=== PATIENT | male | born 1980 | race Caucasian/White ===

== ENCOUNTER 2019-10-14 10:00 | Observation (INO) ==
[2019-10-14 10:42] LABS: Basophils % 0.3 % (0.1-2.0); Eosinophils # 0.3 K/mm3 (0.0-0.4); Hematocrit 42.2 % (42.0-52.0); Hemoglobin 14.6 g/dL (14.1-18.0); Lymphocytes # 1.4 K/mm3 (0.7-4.5); Lymphocytes % 10.6 % (10-50); Mean Corpuscular HGB Conc 34.6 g/dL (31.8-35.4); Mean Corpuscular Volume 92.2 fl (80-94); Mean Platelet Volume 8.3 fl (7.4-10.4); Monocytes # 0.7 K/mm3 (0.1-1.0); Monocytes % 4.8 % (1.7-9.3); Neutrophils # 11.2 K/mm3 (1.8-7.8); Neutrophils % 82.3 % (37.0-80.0); Platelet Count 239 K/mm3 (142-424); Red Blood Count 4.58 M/mm3 (4.60-6.20); Red Cell Distribution Width 13.1 % (11.5-17.5); White Blood Count 13.6 K/mm3 (4.8-10.8)
[2019-10-14 10:44] LABS: Albumin Level 3.9 g/dl (3.5-5.0); Albumin/Globulin Ratio 1.3 (1.1-1.8); Anion Gap 12.6 mEq/L (5-15); Bilirubin,Total 0.6 mg/dl (0.2-1.3); Total Protein,Serum 6.9 g/dl (6.3-8.2)
[2019-10-14 10:45] LABS: Calcium 9.2 mg/dl (8.4-10.2); INR 1.06 (0.9-1.1)
--- NOTE | 2019-10-14 12:21 | Operative Note ---
Date of procedure: 10/14/19 Pre-op Diagnosis:: Left gluteal abscess Post-op Diagnosis:: Same Procedure performed:: Incision and drainage of left gluteal abscess with debridement of skin and subcutaneous tissues Surgeon:: Rafael Sunshine MD RECRUITMENT CONSULTANT:: Ba Tellez Anesthesia: LMA Estimated blood loss (mL): 15 Clinical Note:: Patient is a 39-year-old male with a history of hepatitis C. He states that several days ago he was working on the roof of an old building. He denies any specific trauma but he began developing a sore tender area in the left gluteal region medially. He tried to squeeze it and perform home drainage without success. He had increasing redness and tenderness in the area and was seen in the urgent treatment center yesterday. He was evaluated and started on oral antibiotics and scheduled for outpatient surgical evaluation. Patient was seen in the office this morning and had evidence of appreciable cellulitis of the left gluteal area measuring approximately 12 to 14 cm with an area 8 cm of appreciable induration with focal central necrosis with some purulent drainage. Plan was made for urgent incision and drainage. Operative findings:: Findings consistent with subcutaneous abscess with focal necrotizing cellulitis. Once necrotic tissue was debrided wound measured approximately 5 cm x 5 cm with 2-1/2 cm in depth. Operative note:: Patient was taken to the operating room. General anesthesia was induced via LMA. He was positioned in right lateral decubitus position. The area was prepped and draped in the standard surgical fashion. The focal area of necrosis was probed with a hemostat. There was thick pus which exuded from the wound. This was sent for aerobic and anaerobic culture. Wound was probed with a hemostat. There was an appreciable abscess cavity. This was opened using electrocautery. Underlying pus was evacuated. There was noted to be some necrosis of the subcutaneous tissues consistent with focal necrotizing cellulitis. Serial limited debridement was carried out circumferentially until nonnecrotic subcutaneous tissues were encountered. This tissue was sent for histopathologic analysis. Once debridement was carried out to relatively noninflamed and nonnecrotic tissues the wound measured 5 cm x 5 cm by approximately 2-1/2 cm in depth. Hemostasis was achieved with electrocautery. Wound was thoroughly irrigated. Local anesthetic was infiltrated. Wound was packed with saline moistened gauze. Dry sterile dressing was applied. Given the appreciable evidence of soft tissue infection with findings consistent with focal necrotizing cellulitis as well as the patient's leukocytosis which would indicate systemic inflammatory response plan will be for inpatient management for intravenous antibiotics, pain control, and wound care at this time. Condition: stable Disposition: PACU Specimens:: Debrided tissue Complications:: None immediately apparent
--- NOTE | 2019-10-14 12:29 | Progress Note ---
[facility] Anesthesia Checklist - Patient Identification Patient Identification: Arm Band - Structural Data Admitted From: Home Planned Operative Procedure/s: I&D left gluteal abscess Consent for Planned Operative Procedure(s) Verified: Yes Verified Documents: Surgical Consent, History and Physical - NPO Status Verified Time NPO: 00:00 - Additional verifications Anesthesia Reactions: No Hx Blood Transfusions: No Blood Transfusion Reaction: No - Airway Assessment C-Spine Mobility Assessed: Yes (mp2) TMJ Mobility Assessed: Yes Dentition: Edentulous - Neurological Assessment Level of Consciousness: Awake, Alert - Anesthesia Plan Anesthesia Risk discussed: Yes Anesthesia Plan: Verified ASA Class: II Anesthesia Type: General [facility] History I have reviewed the patient's past medical history: Yes Medical History: Reports:: Hepatitis (c) Denies:: Cancer, Diabetes Mellitus Type 1, Diabetes Mellitus Type 2, Internal Pacemaker, MRSA, Seizures *Have you ever received a pneumonia vaccine?: No *Have you received a flu vaccine this season?: No Other Medical History: Denies: Blood Transfusion Reaction Anesthesia experience/problems:: nac Other Surgeries: Yes: No Previous Surgery. No: Pacemaker Amputation: No Fractures: Yes (left wrist) - *Social History Educational Level: Completed GED/General Educational Development Smoking Status: Current every day smoker Tobacco Type: cigarettes, smokeless tobacco # Packs/Day (cigarettes): 1 Alcohol Intake: current Alcohol Intake Frequency:: holidays/special occasions only Substance Use Type: former substance user, heroin *Occupational Status:: employed Housing: house Household Members: family *Travel in the last 8 weeks: None Family Hx:: Hyperlipidemia, Hypertension
--- NOTE | 2019-10-14 12:30 | Progress Note ---
[facility] Anesthesia Record Part I Intake, IV Amount: 900 Estimated blood loss (mL): 10 Urine output (mL): 0 Blood Pressure: 130/86 SaO2: 99 Pulse Rate: 79 Respiratory Rate: 16 Temperature: 97 F Patient is:: Drowsy, Stable Stable to PACU at:: 12:20
--- NOTE | 2019-10-14 13:58 | Pharmacy Consult Notes ---
- Pharmacy Consult Date: 10/14/19 Time: 13:57 Referring provider: DR. HARRIS Reason for Consult:: VANCOMYCIN DOSING Allergies and ADEs:: Allergies Allergy/AdvReac Type Severity Reaction Status Date / Time No Known Allergies Allergy Verified 10/14/19 09:33 Home Medications:: Home Medications Medication Instructions Recorded Confirmed Type Mupirocin Calcium [Mupirocin 2% 1 applicatio TP TID 10/14/19 10/14/19 History Cream 15gm] Sulfamethoxazole/Trimethoprim 1 each PO BID 10/14/19 10/14/19 History [Bactrim DS tablet] cephALEXin [Keflex 500mg Cap] 500 mg PO Q6H 10/14/19 10/14/19 History Height: 1.83 m Weight: 71.668 kg Laboratory Results:: Laboratory Results - last 24 hr 10/14/19 10:18: WBC 13.6 H, RBC 4.58 L, Hgb 14.6, Hct 42.2, MCV 92.2, MCH 31.9 H , MCHC 34.6, RDW 13.1, Plt Count 239, MPV 8.3, Neut % (Auto) 82.3 H, Lymph % (Auto) 10.6, [place] % (Auto) 4.8, Eos % (Auto) 2.0, Baso % (Auto) 0.3, Neut # (Auto) 11.2 H, Lymph # (Auto) 1.4, [place] # (Auto) 0.7, Eos # (Auto) 0.3, Baso # (Auto) 0.0 10/14/19 10:18: PT 11.0, INR 1.06 10/14/19 10:18: Sodium 137, Potassium 3.6, Chloride 101, Carbon Dioxide 27, Anion Gap 12.6, BUN 10, Creatinine 1.10, Estimated Creat Clear 90, Estimated GFR 74, Est GFR ( Amer) 89, Glucose 105 H, Calcium 9.2, Total Bilirubin 0.6, AST 22, ALT 15, Alkaline Phosphatase 51, Total Protein 6.9, Albumin 3.9, Globulin 3.0, Albumin/Globulin Ratio 1.3 Medical History: Reports:: Hepatitis (c) Denies:: Cancer, Diabetes Mellitus Type 1, Diabetes Mellitus Type 2, Internal Pacemaker, MRSA, Seizures Assessment and Plan - Assessment and plan all Dx Assessment and Plan for all problems:: BASED ON PATIENT FACTORS, RECOMMEND VANCOMYCIN 1250 MG IV Q12H. PHARMACY WILL FOLLOW DAILY AND ADJUST APPROPRIATE.
--- NOTE | 2019-10-14 14:13 | Progress Note ---
[facility] Anesthesia Record Part II Discharge Time: 12:50 Destination: Medical Surgical Department PACU nurse assessment reviewed?: Yes Patient Condition:: Good Anesthesia Complications:: None Swallowing reflex intact?: Yes Cyanosis?: No Blood Pressure: 133/92 Pulse Rate: 93 Temperature: 98 F Mental Status: Alert & Oriented Pain level:: 0 Nausea and/or vomitting:: None Intake, IV Amount: 0
--- NOTE | 2019-10-14 14:50 | Pharmacy Consult Notes ---
[facility] Pharmacy VTE Monitoring - Patient Demographics Admission date: 10/14/19 Report Date: 10/14/19 Time: 14:50 Allergies/Adverse Reactions: Patient Allergies No Known Allergies Allergy (Verified 10/14/19 09:33) Height: 1.83 m Weight: 71.668 kg - VTE Risk Labs: VTE Related Lab Results Hgb 14.6 g/dL (14.1-18.0) 10/14/19 10:18 Hct 42.2 % (42.0-52.0) 10/14/19 10:18 Plt Count 239 K/mm3 (142-424) 10/14/19 10:18 PT 11.0 seconds (9.4-11.8) 10/14/19 10:18 INR 1.06 (0.9-1.1) 10/14/19 10:18 BUN 10 mg/dl (9-20) 10/14/19 10:18 Creatinine 1.10 mg/dl (0.66-1.25) 10/14/19 10:18 Estimated Creat Clear 90 mL/min (50-200) 10/14/19 10:18 VTE Score: 1 VTE Risk Level: Very Low Risk - Prophylaxis VTE Prophylaxis Ordered?: Yes Types of VTE Prophylaxis: TEDS Knee High Location of Applied Device: Bilateral Lower Extremeties
[2019-10-15 05:59] LABS: Basophils % 0.4 % (0.1-2.0); Eosinophils # 0.3 K/mm3 (0.0-0.4); Eosinophils % 3.1 % (0.1-12.0); Hematocrit 36.2 % (42.0-52.0); Lymphocytes # 1.7 K/mm3 (0.7-4.5); Lymphocytes % 20.5 % (10-50); Mean Corpuscular HGB Conc 32.5 g/dL (31.8-35.4); Mean Corpuscular Volume 96.3 fl (80-94); Mean Platelet Volume 8.2 fl (7.4-10.4); Monocytes # 0.4 K/mm3 (0.1-1.0); Monocytes % 5.2 % (1.7-9.3); Neutrophils # 5.7 K/mm3 (1.8-7.8); Neutrophils % 70.8 % (37.0-80.0); Platelet Count 219 K/mm3 (142-424); Red Blood Count 3.76 M/mm3 (4.60-6.20); Red Cell Distribution Width 13.2 % (11.5-17.5); White Blood Count 8.1 K/mm3 (4.8-10.8)
[2019-10-15 06:00] LABS: Hemoglobin 11.8 g/dL (14.1-18.0)
--- NOTE | 2019-10-15 06:34 | Progress Note ---
Subjective Patient reports: feels better Narrative: Patient states that he feels much better. Not had dressing change as of yet. Gram stain shows gram-positive cocci. Exam Vital signs and Labs for Last 24 Hours: Temp Pulse Resp BP Pulse Ox 98.3 F 72 18 110/73 98 10/15/19 04:00 10/15/19 04:00 10/15/19 04:00 10/15/19 04:00 10/15/19 04:00 Laboratory Results - last 24 hr 10/14/19 10:18: WBC 13.6 H, RBC 4.58 L, Hgb 14.6, Hct 42.2, MCV 92.2, MCH 31.9 H , MCHC 34.6, RDW 13.1, Plt Count 239, MPV 8.3, Neut % (Auto) 82.3 H, Lymph % (Auto) 10.6, [place] % (Auto) 4.8, Eos % (Auto) 2.0, Baso % (Auto) 0.3, Neut # (Auto) 11.2 H, Lymph # (Auto) 1.4, [place] # (Auto) 0.7, Eos # (Auto) 0.3, Baso # (Auto) 0.0 10/14/19 10:18: PT 11.0, INR 1.06 10/14/19 10:18: Sodium 137, Potassium 3.6, Chloride 101, Carbon Dioxide 27, Anion Gap 12.6, BUN 10, Creatinine 1.10, Estimated Creat Clear 90, Estimated GFR 74, Est GFR ( Amer) 89, Glucose 105 H, Calcium 9.2, Total Bilirubin 0.6, AST 22, ALT 15, Alkaline Phosphatase 51, Total Protein 6.9, Albumin 3.9, Globulin 3.0, Albumin/Globulin Ratio 1.3 10/15/19 05:35: WBC 8.1 D, RBC 3.76 L, Hgb 11.8 L D, Hct 36.2 L, MCV 96.3 H, MCH 31.3 H, MCHC 32.5, RDW 13.2, Plt Count 219, MPV 8.2, Neut % (Auto) 70.8, Lymph % (Auto) 20.5, [place] % (Auto) 5.2, Eos % (Auto) 3.1, Baso % (Auto) 0.4, Neut # (Auto) 5.7, Lymph # (Auto) 1.7, [place] # (Auto) 0.4, Eos # (Auto) 0.3, Baso # (Auto) 0.0 I & O for Last 24 hours: Intake & Output 10/12/19 10/13/19 10/14/19 10/15/19 11:59 11:59 11:59 11:59 Intake Total 2541 / 2541 Balance 2541 / 2541 Weight 158 lb 153 lb Microbiology Reports for the Last 24 Hours: Microbiology 10/14/19 11:49 Leg,Left - Abscess Gram Stain - Final 10/14/19 11:49 Leg,Left - Abscess Abscess Culture - Preliminary Gram Positive Cocci Narrative: Exam of wound deferred at this time. Progress Note: A&P Assessment and Plan for All Diagnoses:: Patient currently on vancomycin and Zosyn. Will reassess wound shortly. Anticipate ultimate outpatient management with oral antibiotics and dressing changes.
--- NOTE | 2019-10-15 09:00 | Discharge Summary ---
General - General Admission date:: 10/14/19 Discharge date: 10/15/19 HPI HPI: Patient is a 39-year-old male with a history of hepatitis C. He states that several days ago he was working on the roof of an old building. He denies any specific trauma but he began developing a sore tender area in the left gluteal region medially. He tried to squeeze it and perform home drainage without success. He had increasing redness and tenderness in the area and was seen in the urgent treatment center yesterday. He was evaluated and started on oral antibiotics and scheduled for outpatient surgical evaluation. Patient was seen in the office this morning and had evidence of appreciable cellulitis of the left gluteal area measuring approximately 12 to 14 cm with an area 8 cm of appreciable induration with focal central necrosis with some purulent drainage. Plan was made for urgent incision and drainage. Hospital Course Hospital Course: Patient was taken to the operating room at which time he underwent incision and drainage of complex left gluteal abscess. He was found to have some underlying focal necrotizing cellulitis which was debrided. He had debridement of skin and subcutaneous tissue. The overall size of the wound measured approximately 5 x 5 cm and 2-1/2 cm in depth. Given the degree of the wound and cellulitis as well as findings of systemic inflammation with leukocytosis plan was made for inpatient admission. Patient was admitted for inpatient care. He felt much better once the abscess and necrotic tissue was debrided. He was given intravenous vancomycin and Zosyn. Cultures returned preliminarily with gram- positive cocci. The following morning he had market diminished cellulitis. Dressing change was performed which revealed a clean wound. Plan was made for discharge home with oral antibiotics as previously prescribed consisting of Bactrim and cephalexin with once daily outpatient wet-to-dry dressing changes. Objective Vital signs: Temp Pulse Resp BP Pulse Ox 98.3 F 72 18 110/73 98 10/15/19 04:00 10/15/19 04:00 10/15/19 04:00 10/15/19 04:00 10/15/19 04:00 Results Labs on day of discharge: Labs from last 24 hours 10/15/19 10/14/19 10/14/19 05:35 10:18 10:18 WBC 8.1 D RBC 3.76 L Hgb 11.8 L D Hct 36.2 L MCV 96.3 H MCH 31.3 H MCHC 32.5 RDW 13.2 Plt Count 219 MPV 8.2 Neut % (Auto) 70.8 Lymph % (Auto) 20.5 [place] % (Auto) 5.2 Eos % (Auto) 3.1 Baso % (Auto) 0.4 Neut # (Auto) 5.7 Lymph # (Auto) 1.7 [place] # (Auto) 0.4 Eos # (Auto) 0.3 Baso # (Auto) 0.0 PT 11.0 INR 1.06 Sodium 137 Potassium 3.6 Chloride 101 Carbon Dioxide 27 Anion Gap 12.6 BUN 10 Creatinine 1.10 Estimated Creat Clear 90 Estimated GFR 74 Est GFR ( Amer) 89 Glucose 105 H Calcium 9.2 Total Bilirubin 0.6 AST 22 ALT 15 Alkaline Phosphatase 51 Total Protein 6.9 Albumin 3.9 Globulin 3.0 Albumin/Globulin Ratio 1.3 10/14/19 10:18 WBC 13.6 H RBC 4.58 L Hgb 14.6 Hct 42.2 MCV 92.2 MCH 31.9 H MCHC 34.6 RDW 13.1 Plt Count 239 MPV 8.3 Neut % (Auto) 82.3 H Lymph % (Auto) 10.6 [place] % (Auto) 4.8 Eos % (Auto) 2.0 Baso % (Auto) 0.3 Neut # (Auto) 11.2 H Lymph # (Auto) 1.4 [place] # (Auto) 0.7 Eos # (Auto) 0.3 Baso # (Auto) 0.0 PT INR Sodium Potassium Chloride Carbon Dioxide Anion Gap BUN Creatinine Estimated Creat Clear Estimated GFR Est GFR ( Amer) Glucose Calcium Total Bilirubin AST ALT Alkaline Phosphatase Total Protein Albumin Globulin Albumin/Globulin Ratio Preliminary micro results at discharge 10/14/19 11:49 Abscess Culture - Preliminary Leg,Left - Abscess Gram Positive Cocci Discharge Plan - Patient Discharge Instructions ACTIVITY: Continue current activity DIET: continue same diet Additional Instructions: Patient to undergo wet-to-dry saline dressings once daily through outpatient/infusion. - Follow up Plan Follow up with: Rafael Sunshine MD [Staff Physician] - 1 week Disposition: Home, Self-Prison Medications: Home Medications Medication Instructions Recorded Confirmed Type Mupirocin Calcium [Mupirocin 2% 1 applicatio TP TID 10/14/19 10/14/19 History Cream 15gm] Sulfamethoxazole/Trimethoprim 1 each PO BID 10/14/19 10/14/19 History [Bactrim DS tablet] cephALEXin [Keflex 500mg Cap] 500 mg PO Q6H 10/14/19 10/14/19 History Prescriptions/Medication Reconciliation: Continued cephALEXin [Keflex 500mg Cap] 500 mg PO Q6H Sulfamethoxazole/Trimethoprim [Bactrim DS tablet] 1 each PO BID Discontinued Mupirocin Calcium [Mupirocin 2% Cream 15gm] 1 applicatio TP TID - Problem Reconciliation Problems Reviewed?: Yes
== END 2019-10-15 10:30 | disposition home or self-care (01) ==
LOC: 2ND 10:00 → OR 10:00
PROVIDERS: ADMIT Surgery; ATTEND Surgery
CPT/HCPCS: 36415; 80053; 85025; 85610; 87070; 87075; 87077; 87186; 87205; 96372; 96374; G0378; J0330; J2405; J2543; J3370; S0077

== ENCOUNTER 2019-10-16 09:47 | Outpatient (CLI) | payer OTHER, SELFPAY ==
[2019-10-16 10:00] VITALS: RESP 20; O2SAT 96
== END 2019-10-16 10:02 | disposition home or self-care (01) ==
LOC: INF 09:49
PROVIDERS: Visit Provider Surgery
DX: L03.317 Cellulitis of buttock (principal); Z48.01 Encounter for change or removal of surgical wound dressing
CPT/HCPCS: G0463

== ENCOUNTER 2019-10-17 12:15 | Outpatient (CLI) | payer OTHER, SELFPAY | END 2019-10-17 12:40 | disposition home or self-care (01) | LOC: INF 12:15 | PROVIDERS: Visit Provider Surgery | DX: L03.317 Cellulitis of buttock (principal); Z48.01 Encounter for change or removal of surgical wound dressing | CPT/HCPCS: G0463 ==

== ENCOUNTER 2019-10-18 11:03 | Outpatient (CLI) | payer OTHER, SELFPAY | END 2019-10-18 11:20 | disposition home or self-care (01) | LOC: INF 11:03 | PROVIDERS: Visit Provider Surgery | DX: L02.31 Cutaneous abscess of buttock (principal); Z48.00 Encounter for change or removal of nonsurgical wound dressing | CPT/HCPCS: G0463 ==

== ENCOUNTER 2019-10-19 15:18 | Outpatient (CLI) | payer OTHER, SELFPAY | END 2019-10-19 15:45 | disposition home or self-care (01) | LOC: INF 15:18 | PROVIDERS: Visit Provider Surgery | DX: L02.31 Cutaneous abscess of buttock (principal); Z48.01 Encounter for change or removal of surgical wound dressing | CPT/HCPCS: G0463 ==

== ENCOUNTER 2019-10-20 13:58 | Outpatient (CLI) | payer OTHER, SELFPAY | END 2019-10-20 14:05 | disposition home or self-care (01) | LOC: INF 13:58 | PROVIDERS: Visit Provider Surgery | DX: L02.31 Cutaneous abscess of buttock (principal); Z48.01 Encounter for change or removal of surgical wound dressing | CPT/HCPCS: G0463 ==

== ENCOUNTER 2019-10-21 14:53 | Outpatient (CLI) | payer OTHER, SELFPAY | END 2019-10-21 15:00 | disposition home or self-care (01) | LOC: INF 14:54 | PROVIDERS: Visit Provider Surgery | DX: L02.31 Cutaneous abscess of buttock (principal); Z48.01 Encounter for change or removal of surgical wound dressing | CPT/HCPCS: G0463 ==

== ENCOUNTER → 2019-10-22 14:35 | Outpatient (CLI) | payer OTHER, SELFPAY | PROVIDERS: Visit Provider Surgery | DX: L02.31 Cutaneous abscess of buttock (principal); Z48.01 Encounter for change or removal of surgical wound dressing | CPT/HCPCS: G0463 ==

== ENCOUNTER 2019-10-25 14:42 | Outpatient (CLI) | payer OTHER, SELFPAY | END 2019-10-25 14:50 | disposition home or self-care (01) | LOC: INF 14:42 | PROVIDERS: Visit Provider Surgery | DX: L02.31 Cutaneous abscess of buttock (principal); Z48.01 Encounter for change or removal of surgical wound dressing | CPT/HCPCS: G0463 ==

== ENCOUNTER 2019-10-26 16:19 | Outpatient (CLI) | payer OTHER, SELFPAY | END 2019-10-26 16:25 | disposition home or self-care (01) | LOC: INF 16:19 | PROVIDERS: Visit Provider Surgery | DX: L02.31 Cutaneous abscess of buttock (principal); Z48.01 Encounter for change or removal of surgical wound dressing | CPT/HCPCS: G0463 ==

== ENCOUNTER 2019-10-27 16:30 | Outpatient (CLI) | payer OTHER, SELFPAY | END 2019-10-27 16:44 | disposition home or self-care (01) | LOC: INF 16:34 | PROVIDERS: Visit Provider Surgery | DX: L02.31 Cutaneous abscess of buttock (principal); Z48.01 Encounter for change or removal of surgical wound dressing | CPT/HCPCS: G0463 ==

== ENCOUNTER 2019-10-28 16:12 | Outpatient (CLI) | payer OTHER, SELFPAY ==
[2019-10-28 16:23] VITALS: BP 122/74; PULSE 68; RESP 20
== END 2019-10-28 16:26 | disposition home or self-care (01) ==
LOC: INF 16:12
PROVIDERS: Visit Provider Surgery
DX: L02.31 Cutaneous abscess of buttock (principal); Z48.01 Encounter for change or removal of surgical wound dressing
CPT/HCPCS: G0463

== ENCOUNTER 2019-10-29 16:57 | Outpatient (CLI) | payer OTHER, SELFPAY ==
[2019-10-29 17:15] VITALS: BP 141/94; PULSE 113; RESP 17; TEMP 36.6; O2SAT 98
[2019-10-29 17:18] VITALS: BP 141/94; PULSE 113; RESP 18; TEMP 36.6; O2SAT 98
== END 2019-10-29 17:19 | disposition home or self-care (01) ==
LOC: INF 16:57
PROVIDERS: Visit Provider Surgery
DX: L02.31 Cutaneous abscess of buttock (principal); Z48.01 Encounter for change or removal of surgical wound dressing
CPT/HCPCS: G0463

== ENCOUNTER 2019-10-31 16:18 | Outpatient (CLI) | payer OTHER, SELFPAY | END 2019-10-31 16:31 | disposition home or self-care (01) | LOC: INF 16:18 | PROVIDERS: Visit Provider Surgery | DX: L02.31 Cutaneous abscess of buttock (principal); Z48.01 Encounter for change or removal of surgical wound dressing | CPT/HCPCS: G0463 ==

== ENCOUNTER 2019-11-01 16:13 | Outpatient (CLI) | payer OTHER, SELFPAY | END 2019-11-01 16:24 | disposition home or self-care (01) | LOC: INF 16:13 | PROVIDERS: Visit Provider Surgery | DX: L02.31 Cutaneous abscess of buttock (principal); Z48.01 Encounter for change or removal of surgical wound dressing | CPT/HCPCS: G0463 ==

== ENCOUNTER 2019-11-02 16:20 | Outpatient (CLI) | payer OTHER, SELFPAY | END 2019-11-02 16:35 | disposition home or self-care (01) | LOC: INF 16:28 | PROVIDERS: Visit Provider Surgery | DX: L02.31 Cutaneous abscess of buttock (principal); Z48.01 Encounter for change or removal of surgical wound dressing | CPT/HCPCS: G0463 ==

== ENCOUNTER 2019-11-03 16:10 | Outpatient (CLI) | payer OTHER, SELFPAY | END 2019-11-03 16:26 | disposition home or self-care (01) | LOC: INF 16:19 | PROVIDERS: Visit Provider Surgery | DX: L02.31 Cutaneous abscess of buttock (principal); Z48.01 Encounter for change or removal of surgical wound dressing | CPT/HCPCS: G0463 ==

== ENCOUNTER 2019-11-07 16:25 | Outpatient (CLI) | payer OTHER, SELFPAY | END 2019-11-07 16:37 | disposition home or self-care (01) | LOC: INF 16:26 | PROVIDERS: Visit Provider Surgery | DX: L02.31 Cutaneous abscess of buttock (principal); Z48.01 Encounter for change or removal of surgical wound dressing | CPT/HCPCS: G0463 ==

== ENCOUNTER 2019-11-08 16:20 | Outpatient (CLI) | payer OTHER, SELFPAY ==
--- NOTE | 2019-11-08 16:25 | PC.NURSE ---
1625-discussed with patient that wound is now flushed and skin and can be covered with bandaid for further healing, keep follow up with , and if pt has any problems to call and come back to infusion department. cleansed wound and covered with large bandaid.
== END 2019-11-08 16:26 | disposition home or self-care (01) ==
LOC: INF 16:20
PROVIDERS: Visit Provider Surgery
DX: L02.31 Cutaneous abscess of buttock (principal); Z48.01 Encounter for change or removal of surgical wound dressing
CPT/HCPCS: G0463

== ENCOUNTER 2020-10-04 16:46 | Emergency (ER) | payer OTHER, SELFPAY ==
--- NOTE | 2020-10-04 16:54 | XR_ITS ---
PROCEDURE: XR RIBS BI MIN 4V W CXR1V CLINICAL INDICATION: FALL Left anterior rib pain following injury COMPARISON: No exams were available for comparison FINDINGS: Multiple views of the left ribs show no obvious fracture. No lytic or blastic change. Consider follow-up in 7-[address] with 3D reformats if pain persists Frontal view of the chest shows no acute finding IMPRESSION: No acute findings. Dictated by: Osbaldo Murdock MD 10/04/2020 17:22 Osbaldo Murdock MD in [place] 10/04/2020 17:22
[2020-10-04 16:57] VITALS: BP 130/104; PULSE 93; RESP 23; TEMP 36.6; O2SAT 98; BMI 20.9
--- NOTE | 2020-10-04 17:24 | HMH.EDUTC ---
[facility] Disposition Clinical Impression: Rib pain Contusion of ribs Qualifiers: Encounter type: initial encounter Laterality: unspecified laterality Qualified Code(s): S20.219A - Contusion of unspecified front wall of thorax, initial encounter Disposition: Home, Self-Care Condition on Discharge: Good Instructions: DI for Rib Contusion Additional Instructions: Take the medication as directed. Use the incentive spirometer as directed. (10 times every hour while awake) for the next 1 week. Follow up with your primary care doctor. GO TO THE ER FOR ANY WORSENING SYMPTOMS OR CONCERNS, ESPECIALLY ANY SHORTNESS OF BREATH OR WORSENING CHEST PAIN. Prescriptions: Ibuprofen [Ibuprofen 800mg Tablet] 800 mg PO Q8HP PRN #30 tab PRN Reason: Moderate Pain Transmission Status: Received by [facility] Referrals: PCP,No [Primary Care Provider] - Forms: Work/School Release Time of Disposition: 17:40 Medical Decision Making - Medical Records Medical records reviewed: No: I reviewed the patient's medical records. - Andrew Inquiry Pt receiving controlled substance: No Vital Signs: 10/04/20 16:57 10/04/20 17:45 Temperature 97.9 F 97 F L Temperature Source Tympanic Tympanic Pulse Rate 89 Pulse Rate [Right] 93 H Respiratory Rate 23 22 Blood Pressure 136/109 H Blood Pressure [Right Arm] 130/104 H Blood Pressure Mean [Right Arm] 112 Blood Pressure Source [Right Arm] Automatic Cuff Blood Pressure Position [Right Arm] Sitting 02 Sat by Pulse Oximetry 98 Orders (Tests/Meds): ED MEDICATIONS Discontinued Medications Generic Name Dose Route Start Last Admin Trade Name Freq PRN Reason Stop Dose Admin Ketorolac Tromethamine 60 mg 10/04/20 17:11 10/04/20 17:12 Ketorolac 60mg/2ml Vial IM 10/04/20 17:12 60 mg ONCE ONE Administration - Radiology Data #1 Image(s): Chest, Other (ribs) Image Reviewed: Yes I reviewed the patient's radiology image, Yes I have reviewed radiologist's interpretation Preliminary Findings: Normal/NAD PROCEDURE: XR RIBS BI MIN 4V W CXR1V CLINICAL INDICATION: FALL Left anterior rib pain following injury COMPARISON: No exams were available for comparison FINDINGS: Multiple views of the left ribs show no obvious fracture. No lytic or blastic change. Consider follow-up in 7-[address] with 3D reformats if pain persists Frontal view of the chest shows no acute finding IMPRESSION: No acute findings. Dictated by: Osbaldo Murdock MD 10/04/2020 17:22 Osbaldo Murdock MD in [place] 10/04/2020 17:22 Medical Decision Narrative: He was given an incentive spirometer and instructed on how to use it. [facility] HPI - General Stated complaint: AO 0316 fell injured l side Time Seen by Provider: 10/04/20 17:00 Mode of Arrival: Wheelchair Source of Information: Patient Limitations: No Limitations Description of Symptoms (Recalled from Triage Doc. by RN): pt fell two days ago off of a ladder about a five ft fall. says he landed on railroad ties. pt is moaning out in pain, pain 10/10, sharp shooting bilateral rib pain but worse in the left. HEENT Symptoms (Recalled from RN notes): No Resp Symptoms (Recalled from RN notes): No Skin Symptoms (Recalled from RN notes): No MS Symptoms (Recalled from RN notes): Yes (bilateral rib pain. worse on L side) Functional Status (Recalled from RN notes): na - History of Present Illness Provider Complaint: He states that he fell off of a ladder 2 days ago and fell approx 4 feet. He came down on his left side onto some wood. He has had bilateral rib pain since then. He states that he hurts worse on his left side than his right. He currently rates his pain as an 8/10. He denies any shortness of breath. He does say that breathing deep makes his pain worse. - Related Data Previous Rx's Medication Instructions Recorded Ibuprofen [Ibuprofen 800mg 800 mg PO Q8HP PRN #30 tab 10/04/20 Tablet]
[2020-10-04 17:45] VITALS: BP 136/109; PULSE 89; RESP 22; TEMP 36.1
== END 2020-10-04 17:45 | disposition home or self-care (01) ==
PROVIDERS: Emergency Provider Nurse Practitioner Family
DX: S20.219A Contusion of unspecified front wall of thorax, initial encounter (principal); W11.XXXA Fall on and from ladder, initial encounter; Y92.9 Unspecified place or not applicable
CPT/HCPCS: 71111; 96372; 99202; G0463

== ENCOUNTER → 2020-10-18 17:37 | Outpatient (CLI) | payer OTHER, SELFPAY ==
[2020-10-18 17:55] LABS: Basophils % 0.4 % (0.1-2.0); Eosinophils % 0.5 % (0.1-12.0); Hematocrit 43.8 % (42.0-52.0); Hemoglobin 14.4 g/dL (14.1-18.0); Lymphocytes # 2.3 K/mm3 (0.7-4.5); Lymphocytes % 30.1 % (10-50); Mean Corpuscular HGB Conc 32.9 g/dL (31.8-35.4); Mean Corpuscular Volume 91.3 fl (80-94); Mean Platelet Volume 8.9 fl (7.4-10.4); Monocytes # 0.4 K/mm3 (0.1-1.0); Monocytes % 5.1 % (1.7-9.3); Neutrophils # 4.9 K/mm3 (1.8-7.8); Neutrophils % 63.9 % (37.0-80.0); Platelet Count 224 K/mm3 (142-424); Red Blood Count 4.79 M/mm3 (4.60-6.20); Red Cell Distribution Width 13.8 % (11.5-17.5); White Blood Count 7.6 K/mm3 (4.8-10.8)
[2020-10-18 19:22] LABS: Chloride 105 mmol/L (98-107); Potassium 4.5 mmoL/L (3.5-5.1); Sodium 137 mmol/L (136-145)
[2020-10-18 19:25] LABS: Alanine Aminotransferase 27 U/L (12-78); Albumin Level 4.9 g/dl (3.5-5.0); Alkaline Phosphatase 53 U/L (38-126); Anion Gap 10.5 mEq/L (5-15); Aspartate Amino Transferase 36 U/L (17-59); Bilirubin,Total 0.5 mg/dl (0.2-1.3); Blood Urea Nitrogen 12 mg/dl (9-20); Carbon Dioxide 26 mmol/L (22.0-30.0); Estimated Glomerular Filt Rate 124 ml/min (>60); GFR (African American) 150 ML/MIN (>60); Globulin 2.5 g/dL (1.3-3.2); Total Protein,Serum 7.4 g/dl (6.3-8.2)
[2020-10-18 19:26] LABS: Calcium 9.7 mg/dl (8.4-10.2); Glucose 85 mg/dl (74-100)
[2020-10-20 11:20] LABS: Hep A Ab, IgM Negative (Negative); Hep A Ab, Total Positive (Negative); Hep B Core Ab, Total Negative (Negative)
[2020-10-20 19:12] LABS: HIV Screen 4th Generation wRfx Non Reactive (Non Reactive); Hep B Surface Ab, Qual Non Reactive (.)
[2020-10-24 13:53] LABS: Hepatitis C Genotype 1a (.)
== END ==
PROVIDERS: Visit Provider Nurse Practitioner Family
DX: Z86.19 Personal history of other infectious and parasitic diseases (principal); R30.0 Dysuria; Z11.4 Encounter for screening for human immunodeficiency virus [HIV]
CPT/HCPCS: 80053; 85025; 86703; 86704; 86706; 86708; 87522; G0432

== ENCOUNTER 2020-11-20 19:12 | Emergency (ER) | payer OTHER, SELFPAY ==
[2020-11-20 19:15] VITALS: BP 123/87; PULSE 76; RESP 19; TEMP 36.7; O2SAT 98; BMI 18.3
--- NOTE | 2020-11-20 19:37 | HMH.EDUTC ---
[facility] Disposition Clinical Impression: Strep throat, Exposure to COVID-19 virus Disposition: Home, Self-Care Condition on Discharge: Good Instructions: Strep Throat, DI for Strep Throat, Preventing the Spread of Coronavirus Discharge Instructions Additional Instructions: Drink plenty of fluids. Take tylenol or ibuprofen for pain or fever. Take the medications as directed. Follow up with your regular doctor. GO TO THE ER FOR ANY WORSENING SYMPTOMS Throw your tooth brush away and get a new one. Prescriptions: Ondansetron [Zofran 4mg ODT] 4 mg PO Q8HP PRN #12 tab.rapdis PRN Reason: Nausea Transmission Status: Received by [id number] Amoxicillin/Potassium Clav [Augmentin 875-125 Tablet] 1 tab PO Q12H 10 Days #20 tab Transmission Status: Received by [id number] Referrals: Willem Ghotra MD [Primary Care Provider] - Forms: Work/School Release Time of Disposition: 19:58 Medical Decision Making - Medical Records Medical records reviewed: No: I reviewed the patient's medical records. - Andrew Inquiry Pt receiving controlled substance: No Vital Signs: 11/20/20 19:15 11/20/20 19:55 Temperature 98.1 F 98.1 F Temperature Source Oral Pulse Rate 76 Pulse Rate [Right Brachial] 76 Respiratory Rate 19 19 Blood Pressure 123/87 Blood Pressure [Right Arm] 123/87 Blood Pressure Mean [Right Arm] 99 Blood Pressure Source [Right Arm] Automatic Cuff Blood Pressure Position [Right Arm] Sitting 02 Sat by Pulse Oximetry 98 Oxygen Delivery Method Room Air - Lab Data Lab results reviewed: Yes: I reviewed the patient's lab results. Lab Results 11/20/20 19:39: Strep Scn Rapid Clinic Positive A Orders (Tests/Meds): ORDERS Category Date Time Status Covid-19 Nasal PCR ([facility]) Routine Lab 11/20/20 19:22 Received [facility] HPI - General Stated complaint: covid test,cough,KUO,Vomiting Time Seen by Provider: 11/20/20 19:37 - History of Present Illness Provider Complaint: He c/o sore throat, fever, and feeling bad for the past 2 days. He was exposed to covid-19 last week. - Related Data Previous Rx's Medication Instructions Recorded Amoxicillin/Potassium Clav 1 tab PO Q12H 10 Days #20 tab 11/20/20 [Augmentin 875-125 Tablet] Ondansetron [Zofran 4mg ODT] 4 mg PO Q8HP PRN #12 tab.rapdis 11/20/20 Allergies Allergy/AdvReac Type Severity Reaction Status Date / Time No Known Allergies Allergy Verified 10/18/20 15:31 [facility] History - Hepatitis A Screen Attestation statement:: This patient has been screened for Hepatitis A risk factors. I have reviewed the patient's past medical history: Yes Medical History: Reports:: Hepatitis Denies:: Cancer, Diabetes Mellitus Type 1, Diabetes Mellitus Type 2, Internal Pacemaker, MRSA, Seizures Other Medical History: Denies: Blood Transfusion Reaction Other Surgeries: Yes: No Previous Surgery, Other. No: Pacemaker Amputation: No Fractures: Yes (left wrist) - Social History Smoking Status: Current every day smoker Tobacco Type: cigarettes # Packs/Day (cigarettes): 1 Alcohol Intake: never Alcohol Intake Frequency:: holidays/special occasions only Substance Use Type: former substance user, heroin Occupational Status: employed Housing: house Household Members: family Family Hx:: Diabetes, Heart Attack, Hyperlipidemia, Hypertension ROS Obtained: Yes All systems reviewed & no additional complaints - Constitutional Constitutional: Reports chills, Reports fever(s), Reports poor appetite, Reports malaise - Eyes Eyes: Denies eye discharge - ENT Ears, Nose, Mouth, and Throat: Reports as per HPI - Cardiovascular Cardiovascular: Denies chest pain - Respiratory Respiratory: Denies chest congestion, Reports cough, Denies dyspnea, Denies stridor, Denies wheezing - Gastrointestinal Gastrointestingal: Reports: nausea, vomiting. Denies: abdominal pain, diarrhea Physical Exam - General General patrick
[2020-11-20 19:51] LABS: UTC Strep Screen (Rapid) Positive (Negative)
[2020-11-20 19:55] VITALS: BP 123/87; PULSE 76; RESP 19; TEMP 36.7; O2SAT 98
== END 2020-11-20 20:03 | disposition home or self-care (01) ==
PROVIDERS: Emergency Provider Nurse Practitioner Family; PCP Emergency Medicine
DX: Z20.822 Contact with and (suspected) exposure to COVID-19 (principal); J02.0 Streptococcal pharyngitis; F17.210 Nicotine dependence, cigarettes, uncomplicated
CPT/HCPCS: 87880; 99202; G0463; U0003

== ENCOUNTER 2023-03-27 22:43 | Emergency (ER) | payer OTHER, SELFPAY ==
[2023-03-27 22:43] VITALS: BP 153/96; PULSE 113; RESP 20; TEMP 36.8; O2SAT 97; BMI 20.2
[2023-03-27 23:00] VITALS: BP 137/91; PULSE 109; O2SAT 96
--- NOTE | 2023-03-27 23:40 | XR_ITS ---
PROCEDURE INFORMATION: Exam: XR Right Ankle Exam date and time: 03/27/2023 11:40 PM Age: 42 years old Clinical indication: Pain; Ankle; Right; Additional info: Swelling, erythema, cellulitis vs. Septic joint TECHNIQUE: Imaging protocol: Radiologic exam of the right ankle. Views: 3 or more views. COMPARISON: No relevant prior studies available. FINDINGS: Bones/joints: No acute fracture or dislocation. Soft tissues: There is significant soft tissue swelling about the ankle. IMPRESSION: Soft tissue swelling without acute injury identified.
[2023-03-27 23:48] LABS: Basophils % 0.3 % (0.1-2.0); Eosinophils # 0.2 K/mm3 (0.0-0.4); Eosinophils % 1.8 % (0.1-12.0); Hematocrit 38.1 % (42.0-52.0); Hemoglobin 12.8 g/dL (14.1-18.0); Lymphocytes # 2.2 K/mm3 (0.7-4.5); Lymphocytes % 22.6 % (10-50); Mean Corpuscular HGB Conc 33.7 g/dL (31.8-35.4); Mean Corpuscular Hemoglobin 31.2 pg (27.0-31.2); Mean Corpuscular Volume 92.7 fl (80-94); Mean Platelet Volume 8.2 fl (7.4-10.4); Monocytes # 0.7 K/mm3 (0.1-1.0); Neutrophils # 6.6 K/mm3 (1.8-7.8); Neutrophils % 68.3 % (37.0-80.0); Platelet Count 152 K/mm3 (142-424); Red Blood Count 4.11 M/mm3 (4.60-6.20); Red Cell Distribution Width 14.6 % (11.5-17.5); White Blood Count 9.7 K/mm3 (4.8-10.8)
[2023-03-27 23:50] LABS: Chloride 108 mmol/L (98-107); Potassium 3.2 mmoL/L (3.5-5.1); Sodium 139 mmol/L (136-145)
[2023-03-27 23:53] LABS: Alanine Aminotransferase 111 U/L (12-78); Albumin Level 3.3 g/dl (3.5-5.0); Albumin/Globulin Ratio 1.1 (1.1-1.8); Alkaline Phosphatase 102 U/L (38-126); Anion Gap 10.2 mEq/L (5-15); Aspartate Amino Transferase 87 U/L (17-59); Bilirubin,Total 0.6 mg/dl (0.2-1.3); Blood Urea Nitrogen 9 mg/dl (9-20); Calcium 8.9 mg/dl (8.4-10.2); Carbon Dioxide 24 mmol/L (22.0-30.0); Creatinine Clearance Estimated 125 mL/min (50-200); Estimated Glomerular Filt Rate 123 ml/min (>60); GFR (African American) 148 ML/MIN (>60); Glucose 119 mg/dl (74-100); Total Protein,Serum 6.3 g/dl (6.3-8.2)
[2023-03-28 00:19] LABS: Erythrocyte Sedimentation Rate 17 mm/hr (0-15)
[2023-03-28 02:12] LABS: C-Reactive Protein 13.2 mg/L (0-4)
--- NOTE | 2023-03-28 02:17 | PC.NURSE ---
On phone with [facility]'s re: transfer to their facility, Dr. Benavides on phone
--- NOTE | 2023-03-28 02:23 | PC.NURSE ---
No room available at
--- NOTE | 2023-03-28 02:24 | HMH.EDGENADL ---
Discharge Plan Disposition Patient Disposition: Xfer Other Condition: Fair Chief Complaint: PAIN Prescriptions Prescriptions: No Action amoxicillin-pot clavulanate 1 EACH tablet 1 tab PO Q12H 10 Days Qty: 20 0RF ondansetron 4 MG tablet,disintegrating 4 mg PO Q8HP PRN (Reason: Nausea) Qty: 12 0RF Referrals Follow up/Referrals: Provider,Referral, MD [Primary Care Provider] - See instructions Activity Restrictions/Add. Instructions Additional Instructions/Restrictions: Please proceed directly to [facility] emergency department for further evaluation. Clinical Impressions Clinical Impression: Septic arthritis of ankle Qualifiers: Septic arthritis organism: due to unspecified organism Laterality: right Qualified Code(s): M00.9 - Pyogenic arthritis, unspecified Cellulitis Qualifiers: Site of cellulitis: extremity Site of cellulitis of extremity: lower extremity Laterality: right Qualified Code(s): L03.115 - Cellulitis of right lower limb Discharge ED Provider: Robbie Jean Adult HPI General Chief complaint: PAIN Stated complaint: right foot pain/swelling, no accident Time Seen by Provider: 03/27/23 23:01 Mode of Arrival: Wheelchair Source of Information: Patient Limitations: No Limitations Description of Symptoms (Recalled from ER Triage Doc. by RN): Patient reports right ankle swelling and redness that started 2 days ago. Patient reports he does not recall recent injury to ankle. History of Present Illness HPI narrative: 42-year-old male history of IV drug use presents with 2 days of right ankle pain swelling and redness. He reports that something may have fallen on it a couple of days ago but he did not think anything of it, he did not sustain any bruising or laceration at that time. He has been having worsening redness pain and swelling at the medial aspect of the right ankle. He reports significant pain with range of motion of the ankle. Reports swelling at the lateral aspect of the ankle as well though no redness. He reports no fevers or chills at home. No history of prior joint infection. Reports that he has had cellulitis before. He denies current IV drug use, though I am not certain if he is being truthful.. Related Data Previous Rx's Medication Instructions Recorded amoxicillin 875 mg-potassium 1 tab PO Q12H 10 days #20 tabs 11/20/20 clavulanate 125 mg tablet ondansetron 4 mg disintegrating 4 mg PO Q8HP PRN Nausea ##12 11/20/20 tablet Allergies Allergy/AdvReac Type Severity Reaction Status Date / Time No Known Allergies Allergy Verified 10/18/20 15:31 [facility] Disclaimer: The information contained in this section may have been updated after the patient was seen, as this information can be updated by other users. 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 current occupational exposures/hazards: Yes caffeine: Yes ROS Obtained: Yes All systems reviewed & no additional complaints except as documented Physical Exam General General appearance: alert and anxious Head Head exam: atraumatic and normocephalic Eye Eye exam: Present normal appearance, PERRL and EOMI ENT ENT exam: Present normal oropharynx and normal external ear exam Neck Neck exam: Present normal inspection and full ROM Chest Chest inspection: Present normal inspection and symmetric chest wall rise; Absent tenderness Respiratory Respiratory exam: Present normal lung sounds bilaterally; Absent respiratory distress Cardiovascular Cardiovascular exam: Present normal rhythm and tachycardia Abdominal Exam Abdominal exam: Present soft; Absent distention, tenderness or guarding Extrem
--- NOTE | 2023-03-28 02:34 | PC.NURSE ---
PC to [facility], spoke with Marie she will call us back as soon as they get a call back from [facility]
--- NOTE | 2023-03-28 02:45 | PC.NURSE ---
ED doctor on phone with Dr. Benson, orthopedics @ [facility]. Waiting on ED doctor from [facility] to call back to see if they will accept patient in ED to tap his ankle
--- NOTE | 2023-03-28 02:57 | PC.NURSE ---
ED doctor is going to contact Dr. Benson to see if he is willing to come in and tap patients ankle and then they will call back
--- NOTE | 2023-03-28 03:05 | PC.NURSE ---
o/p with [facility].
--- NOTE | 2023-03-28 03:40 | PC.NURSE ---
Report called to Anderson at [facility].
[2023-03-28 04:01] VITALS: BP 132/96; PULSE 72; RESP 18; TEMP 36.7; O2SAT 97
== END 2023-03-28 04:03 | disposition other institution (70) ==
PROVIDERS: Emergency Provider Emergency Medicine
DX: M00.871 Arthritis due to other bacteria, right ankle and foot (principal); L03.115 Cellulitis of right lower limb; F17.210 Nicotine dependence, cigarettes, uncomplicated
CPT/HCPCS: 73610; 80053; 83605; 85025; 85651; 86140; 87040; 96374; 99285

== ENCOUNTER 2024-02-13 12:40 | Emergency (ER) | payer OTHER, SELFPAY ==
[2024-02-13 12:42] VITALS: BP 146/99; PULSE 83; RESP 16; TEMP 36.4; O2SAT 98; BMI 19.0
[2024-02-13 13:00] VITALS: BP 146/99; PULSE 88; O2SAT 97
--- NOTE | 2024-02-13 13:04 | ED_ITS ---
Discharge Plan Disposition Patient Disposition: Home, Self-Care Prescriptions Prescriptions: No Action amoxicillin-pot clavulanate 1 EACH tablet 1 tab PO Q12H 10 Days Qty: 20 0RF ondansetron 4 MG tablet,disintegrating 4 mg PO Q8HP PRN (Reason: Nausea) Qty: 12 0RF Referrals Follow up/Referrals: Provider,Referral, MD [Primary Care Provider] - See instructions Activity Restrictions/Add. Instructions Additional Instructions/Restrictions: Follow-up Dr. Márquez here in town on Thursday for further evaluation. Apply erythromycin ointment 3 times daily for the next 5 days. Call your family doctor to establish care for this visit to the emergency department and schedule follow-up within 48 hours to ensure improvement. If you have any worsening of your condition or any other concerning signs or symptoms, return to the emergency department or your primary care doctor for further evaluation. You can apply Cyclogyl topical drops up to 3 times daily to help with sensitivity to light. Clinical Impressions Clinical Impression: Abrasion, corneal Qualifiers: Encounter type: initial encounter Laterality: right Qualified Code(s): S05.01XA - Injury of conjunctiva and corneal abrasion without foreign body, right eye, initial encounter Print Language Print Language: Croatian Discharge ED Provider: Gigi Gunn General Adult HPI General Chief complaint: Eye Problems Stated complaint: AO 02/12/24, inj to right eye Time Seen by Provider: 02/13/24 12:46 Mode of Arrival: Ambulatory Source of Information: Patient Limitations: No Limitations Description of Symptoms (Recalled from ER Triage Doc. by RN): Complaint of right eye pain after an eye injury yesterday. History of Present Illness HPI narrative: Please note that above description of symptoms, in this electronic medical record under categorization of recalled from ER triage doctor by RN are reflective of an initial nursing assessment, however, is not reflective of my full history and physical exam that was personally taken and clarified. Consequentially, this preceding description of symptoms, which may include the patient's categorized chief complaint in the EMR, do not reflect my personal clinical impression, and the ultimate description of history of present illness and patient stated complaints should be deferred to this section of the note. Unless stated otherwise or congruent with this section of the note, additional signs, symptoms, or incongruence should be interpreted as inaccurate with my clinical impression. Related Data Previous Rx's ?Medication ?Instructions ?Recorded amoxicillin 875 mg-potassium 1 tab PO Q12H 10 days #20 tabs 11/20/20 clavulanate 125 mg tablet ondansetron 4 mg disintegrating 4 mg PO Q8HP PRN Nausea ##12 11/20/20 tablet Allergies Allergy/AdvReac Type Severity Reaction Status Date / Time No Known Allergies Allergy Verified 10/18/20 15:31 [facility] Disclaimer: The information contained in this section may have been updated after the patient was seen, as this information can be updated by other users. Social History Smoking Status: Current every day smoker tobacco type: cigarettes packs per day: 1 second hand exposure: No alcohol intake: never substance use type: former substance user and heroin current occupational status: other Travel in the last 8 weeks: None household members: family housing: house current occupation: [employer] current occupational exposures/hazards: Yes caffeine: Yes ROS Obtained: Yes All systems reviewed & no additional complaints except as documented Physical Exam General General appearance: alert Head Head exam: atraumatic and normocephalic Eye Eye exam: Present PERRL, EOMI and conjunctival redness; Absent normal appearance Neck Neck exam: Present normal inspection, full ROM and trachea midline Respiratory Respiratory exam: Absent respiratory distress, wheezes, stridor, accessory muscle use or prolonged expiratory phase Cardiovascular Cardiovascular exam: Present other (Pulses equal symmetric in upper and lower extremities) Abdominal Exam Abdominal exam: Present soft; Absent distention, tenderness or pulsatile mass Extremities Exam Extremities exam: Absent edema Neurological Exam Neurological exam: Present alert, oriented X3 and CN II-XII intact; Absent motor sensory deficit Skin Skin exam: Present warm and dry; Absent diaphoresis or erythema Medical Decision Making Medical Records Medical records reviewed: Yes I reviewed the patient's medical records. Andrew Inquiry Pt receiving controlled substance: No Andrew was queried for this patient: No Vital Signs: 02/13/24 12:42 02/13/24 13:00 Temperature 97.6 F Temperature Source Oral Pulse Rate 88 Pulse Rate [Radial] 83 Respiratory Rate 16 Blood Pressure 146/99 H Blood Pressure [Right Arm] 146/99 H Blood Pressure Mean [Right Arm] 114 Blood Pressure Source [Right Arm] Automatic Cuff Blood Pressure Position [Right Arm] Sitting 02 Sat by Pulse Oximetry 98 97 Oxygen Delivery Method Room Air Orders (Tests/Meds): ED MEDICATIONS Discontinued Medications Generic Name Dose Route Start Last Admin Trade Name Freq PRN Reason Stop Dose Admin Cyclopentolate HCl 0 ml 02/13/24 12:49 02/13/24 13:57 Cyclopentolate 2% Ophth Soln 2ml Bottle OP 02/13/24 12:50 2 ml ONCE ONE Administration Erythromycin 1 gm 02/13/24 12:49 02/13/24 13:57 Erythromycin Base 1 Gm Oint...G. OP 02/13/24 12:50 1 gm ONCE ONE Administration Fluorescein Sodium 1 mg 02/13/24 12:49 02/13/24 13:57 Fluorescein Sodium 1mg Strip OP 02/13/24 12:50 1 mg ONCE ONE Administration Ketorolac Tromethamine 15 mg 02/13/24 13:47 02/13/24 13:56 Ketorolac 30mg/Ml Vial IV 02/13/24 13:48 15 mg ONCE ONE Administration Tetanus/Reduced Diphtheria/Acell Pertussis 0.5 ml 02/13/24 12:50 02/13/24 13:56 Tet/Diphth/Pert-Adult 0.5ml Syringe IM 02/13/24 12:51 0.5 ml .ONCE ONE Administration Tetracaine HCl 0 ml 02/13/24 12:49 02/13/24 13:57 Tetracaine 0.5% Opth Kayli 15ml OP 02/13/24 12:50 15 ml ONCE ONE Administration ORDERS Category Date Time Status Orbit XR left [XR orbit bilateral min 4V] Stat Exams 02/13/24 14:14 Ordered Medical Decision Narrative: 43-year-old male no relevant presenting with right eye pain. Patient states that he does not member when his last tetanus shot was. Yesterday he was using a nail gun against metal surface and a piece of metal flew up and hit him in the right eye. Had persistent pain through today, so came for further evaluation. No vision changes, but he is sensitive to light. Severe pain, has not taken anything for the pain or noticed anything that makes it better. History was obtained via conversation with patient. On arrival, patient hemodynamically stable, alert, oriented x4, appropriate, GCS 15, moving all extremities spontane ously, pupils equal and reactive to light. Full physical exam performed and significant for uncomfortable appearing male who is in no acute distress. Pupils are equal and reactive. He does have conjunctival injection on the right. No evidence of hyphema, proptosis, entrapment, conjunctival hemorrhage, pupillary changes, cellulitic change, obvious foreign body, or otherwise irregular ocular findings. Fluorescein staining with focal uptake just inferior to pupil at 6 o'clock position overlying iris. Patient also has consensual photophobia. Tetracaine administered, mild relief, but still consensual photophobia. Cyclogyl was administered. Intraocular pressure average 15.1. This gave differential includes foreign body, abrasion, globe rupture, among others. Patient given Tdap. Patient still having pain, given IM Toradol. On full examined patient more comfortable, feeling much better after Cyclogyl and tetracaine with topical erythromycin. Orbit x-rays ordered out of abundance of caution, no acute foreign body. Patient given erythromycin ointment. Because patient at baseline without signs or symptoms of clinical decompensation, deemed appropriate for discharge. Results were relayed to patient who voiced understanding and were agreeable to outpatient management and follow up. I discussed my clinical impression with patient and answered all questions. At this time, the evidence for any other entities in the differential is insufficient to warrant any further testing or ED observation. This was explained as well. Advisory was given that persistent or worsening symptoms require further evaluation. I confirmed the understanding of this discussion. Senior Ruby Developer disclaimer Much of this encounter note is an electronic card grinder helper spoken language to printed text. Electronic card grinder helper of the spoken language may permit errors. Although I have reviewed the note, some errors may still exist. Critical Care Critical Care Time Critical Care Time: No
[2024-02-13] MEDS: TET/DIPHTH/PERT-ADULT 0.5ML SYRINGE 0.5 ML IM (13:56)
[2024-02-13] MEDS: KETOROLAC 30MG/ML VIAL 15 MG IV (13:56)
[2024-02-13] MEDS: TETRACAINE 0.5% OPTH SOL 15ML OP (13:57)
[2024-02-13] MEDS: CYCLOPENTOLATE 2% OPHTH SOLN 2ML BOTTLE OP (13:57)
[2024-02-13] MEDS: ERYTHROMYCIN BASE 1 GM OINT...G. OP (13:57)
[2024-02-13] MEDS: FLUORESCEIN SODIUM 1MG STRIP 1 MG OP (13:57)
--- NOTE | 2024-02-13 14:14 | XR_ITS ---
PROCEDURE INFORMATION: Exam: XR Orbits Exam date and time: 02/13/2024 2:17 PM Age: 43 years old Clinical indication: Eye pain; Left; Additional info: L eye tenderness, fb eval TECHNIQUE: Imaging protocol: XR of the orbits. Views: Minimum of 4 views COMPARISON: CR XR ORBIT BILATERAL MIN 4V 02/13/2024 2:17 PM FINDINGS: Sinuses: Well aerated. No opacification. Bones/joints: No fracture. Soft tissues: Unremarkable. No radiopaque foreign body identified. IMPRESSION: Unremarkable.
--- NOTE | 2024-02-13 14:16 | PC.NURSE ---
pt lying in bed with call light within reach
[2024-02-13 14:39] VITALS: BP 146/99; PULSE 88; RESP 16; TEMP 36.7; O2SAT 97
== END 2024-02-13 14:40 | disposition home or self-care (01) ==
PROVIDERS: Emergency Provider Emergency Medicine
DX: S05.01XA Injury of conjunctiva and corneal abrasion without foreign body, right eye, initial encounter (principal); H53.141 Visual discomfort, right eye; W45.8XXA Other foreign body or object entering through skin, initial encounter; Z23 Encounter for immunization
CPT/HCPCS: 70200; 90471; 90715; 96374; 99284; J1885

== ENCOUNTER 2024-08-30 19:02 | Observation (INO) | payer OTHER, SELFPAY ==
--- NOTE | 2024-08-30 19:12 | CT_ITS ---
PROCEDURE INFORMATION: Exam: CT Abdomen And Pelvis With Contrast Exam date and time: 08/30/2024 7:47 PM Age: 44 years old Clinical indication: Other: Hernia; Additional info: Direct inguinal hernia, significant pain TECHNIQUE: Imaging protocol: Computed tomography of the abdomen and pelvis with contrast. Radiation optimization: All CT scans at this facility use at least one of these dose optimization techniques: automated exposure control; mA and/or kV adjustment per patient size (includes targeted exams where dose is matched to clinical indication); or iterative reconstruction. Contrast material: ISOVUE; Contrast volume: 75 ml; Contrast route: IV; COMPARISON: CR XR RIBS BI MIN 4V W CXR1V 10/04/2020 4:52 PM FINDINGS: Liver: Nodular hepatic contour. No focal mass. Gallbladder and biliary ducts: Normal. No calcified stones. No ductal dilation. Pancreas: Normal. No ductal dilation. Spleen: The spleen is enlarged measuring 15 cm craniocaudal. Adrenal glands: Normal. No mass. Kidneys and ureters: Normal. No hydronephrosis. Stomach and bowel: Moderate gastric distension. The small bowel and colon are nondistended. Appendix: No evidence of appendicitis. Intraperitoneal space: Unremarkable. No free air. No significant fluid collection. Vasculature: Unremarkable. No abdominal aortic aneurysm. Lymph nodes: Unremarkable. No enlarged lymph nodes. Urinary bladder: Unremarkable as visualized. Reproductive: Unremarkable as visualized. Bones/joints: Unremarkable. No acute fracture. Soft tissues: 3 cm right inguinal hernia containing a loop of nondilated small bowel. IMPRESSION: 3 cm right inguinal hernia containing a loop of nondilated small bowel. Nodular hepatic contour, suspicious for hepatic cirrhosis. Mild splenomegaly.
[2024-08-30 19:17] VITALS: BP 160/120; PULSE 94; RESP 16; TEMP 36.9; O2SAT 98; BMI 20.3
--- NOTE | 2024-08-30 19:23 | PC.NURSE ---
Pt awake alert and oriented x3 Skin pink warm and dry Resp full and easy Speech clear and appropriate. Abd flat + bowel sounds x4
[2024-08-30 19:26] LABS: Microscopic, Urine URINE MICROSCOPIC (MICROSCOPIC)
[2024-08-30 19:30] VITALS: BP 154/80; PULSE 110; O2SAT 99
[2024-08-30 19:33] LABS: Appearance,Urine CLEAR (Clear); Bilirubin,Urine Negative (Negative); Blood, Urine 3+ (Negative); Color,Urine YELLOW (Yellow); Glucose,Urine (UA) Negative (Negative); Ketones,Urine TRACE (Negative); Leukocyte Esterase,Urine Negative (Negative); Nitrate,Urine Negative (Negative); Protein,Urine Negative (Negative); Specific Gravity, Urine >= 1.030 (1.005-1.030)
[2024-08-30] MEDS: HYDROMORPHONE 2MG/ML SYRINGE 1 MG IV ×2 (19:36→20:13)
[2024-08-30] MEDS: ONDANSETRON 4MG/2ML VIAL 4 MG IV (19:37)
[2024-08-30] MEDS: KETOROLAC 30MG/ML VIAL 15 MG IV (19:37)
--- NOTE | 2024-08-30 19:43 | HMH.EDGENADL ---
Discharge Plan Disposition Patient Disposition: Admitted Chief Complaint: Abdominal Pain Prescriptions Prescriptions: No Action amoxicillin-pot clavulanate 1 EACH tablet 1 tab PO Q12H 10 Days Qty: 20 0RF ondansetron 4 MG tablet,disintegrating 4 mg PO Q8HP PRN (Reason: Nausea) Qty: 12 0RF Referrals Follow up/Referrals: Provider,Referral, MD [Primary Care Provider] - See instructions Clinical Impressions Clinical Impression: Direct inguinal hernia of right side Instructions Patient Instructions: DI for Acute Abdominal Pain Print Language Print Language: Turkish Discharge ED Provider: Gigi Gunn General Adult HPI General Chief complaint: Abdominal Pain Stated complaint: Hernia right groin Time Seen by Provider: 08/30/24 19:06 Mode of Arrival: Ambulatory Source of Information: Patient Limitations: No Limitations Description of Symptoms (Recalled from ER Triage Doc. by RN): Pt states he has pain in his right groin Pt has hx of hernia in that area History of Present Illness HPI narrative: Please note that above description of symptoms, in this electronic medical record under categorization of recalled from ER triage doctor by RN are reflective of an initial nursing assessment, however, is not reflective of my full history and physical exam that was personally taken and clarified. Consequentially, this preceding description of symptoms, which may include the patient's categorized chief complaint in the EMR, do not reflect my personal clinical impression, and the ultimate description of history of present illness and patient stated complaints should be deferred to this section of the note. Unless stated otherwise or congruent with this section of the note, additional signs, symptoms, or incongruence should be interpreted as inaccurate with my clinical impression. Related Data Previous Rx's ?Medication ?Instructions ?Recorded amoxicillin 875 mg-potassium 1 tab PO Q12H 10 days #20 tabs 11/20/20 clavulanate 125 mg tablet ondansetron 4 mg disintegrating 4 mg PO Q8HP PRN Nausea ##12 11/20/20 tablet Allergies Allergy/AdvReac Type Severity Reaction Status Date / Time No Known Allergies Allergy Verified 10/18/20 15:31 [facility] Disclaimer: The information contained in this section may have been updated after the patient was seen, as this information can be updated by other users. 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 current occupational exposures/hazards: Yes caffeine: Yes Have you lived/traveled outside US in past 30 days?: No Contact w/someone who lives/traveled outside US past 30 days?: No Exposure to someone with infectious disease in past 14 days?: No Do you have a fever (greater than 100.4 F or 38 C)?: No Have you tested positive for COVID-19: No Exposed to someone with COVID-19 in past 14 days?: No Do you have a sore throat?: No Do you have a cough?: No Do you have any weakness?: No Do you have any diarrhea?: No Are you experiencing any unusual bleeding?: No Do you have any muscle aches/pain?: No Do you have any abdominal pain?: No Are you experiencing loss of taste or smell?: No Other Medical History Have you received the Flu Vaccine for this season: No Have you received the Pneumonia Vaccine: No ROS Obtained: Yes All systems reviewed & no additional complaints except as documented Physical Exam General General appearance: alert and in distress (Secondary to pain) Head Head exam: atraumatic and normocephalic Eye Eye exam: Present normal appearance, PERRL and EOMI Neck Neck exam: Present normal inspection, full ROM and trachea midline Respiratory Respiratory exam: Absent respiratory distress, wheezes, stridor, accessory muscle use or prolonged expiratory phase Cardiovascular Cardiovascular exam: Present normal rhythm, tachycardia and other (Pulses equal symmetric in upper and lower extremities) Abdominal Exam Abdominal exam: Present soft; Absent distention, tenderness, guarding, rebound, rigidity or pulsatile mass exam: Present other (Has direct inguinal hernia on the right. Soft, no overlying skin changes, but significantly tender.) Extremities Exam Extremities exam: Absent edema Neurological Exam Neurological exam: Present alert, oriented X3 and CN II-XII intact; Absent motor sensory deficit Skin Skin exam: Present warm and dry; Absent diaphoresis or erythema Medical Decision Making Medical Records Medical records reviewed: Yes I reviewed the patient's medical records. Screening: Per USPSTF and CDC recommendations, given the prevalence of disease in our region, it is our hospital?s policy to screen for HIV and viral Hepatitis for all patients aged 18 and over and those with ongoing risk factors. Andrew Inquiry Pt receiving controlled substance: No Andrew was queried for this patient: No Vital Signs: 08/30/24 19:17 08/30/24 19:30 08/30/24 20:00 Temperature 98.4 F Temperature Source Oral Pulse Rate 110 H 103 H Pulse Rate [Right Brachial] 94 H Respiratory Rate 16 Blood Pressure 154/80 H 140/104 H Blood Pressure [Right Arm] 160/120 H Blood Pressure Mean [Right Arm] 133 Blood Pressure Source [Right Arm] Automatic Cuff Blood Pressure Position [Right Arm] Sitting 02 Sat by Pulse Oximetry 98 99 98 Oxygen Delivery Method Room Air Lab Data Lab Results 08/30/24 19:22: Urine Color Yellow, Urine Appearance Clear, Urine pH 6.0, Ur Specific [place] >= 1.030, Urine Protein Negative, Urine Glucose (UA) Negative, Urine Ketones Trace, Urine Blood 3+ A, Urine Nitrate Negative, Urine Bilirubin Negative, Urine Urobilinogen 2.0, Ur Leukocyte Esterase Negative, Urine RBC Tntc, Urine WBC 3-5, Ur Squamous Epith Cells 3-5, Calcium Oxalate Crystal 1+, Urine Mucus 2+ 08/30/24 19:30: WBC 7.5, RBC 4.39 L, Hgb 13.1 L, Hct 38.7 L, MCV 88.2, MCH 29.8, MCHC 33.9, RDW 13.7, Plt Count 148, MPV 9.8, Neut % (Auto) 67.4, Lymph % (Auto) 23.1, [place] % (Auto) 7.3, Eos % (Auto) 1.6, Baso % (Auto) 0.5, Neut # (Auto) 5.1, Lymph # (Auto) 1.7, [place] # (Auto) 0.6, Eos # (Auto) 0.1, Baso # (Auto) 0.0, Sodium 138, Potassium 3.5, Chloride 101, Carbon Dioxide 30, Anion Gap 10.5, BUN 16, Creatinine 0.90, Estimated Creat Clear 99, Estimated GFR 91, Est GFR ( Amer) 110, Glucose 129 H, Lactate 2.2 H, Calcium 9.1, Total Bilirubin 0.4, AST 83 H, ALT 88 H, Alkaline Phosphatase 135 H, Total Protein 7.1, Albumin 3.8, Globulin 3.3 H, Albumin/Globulin Ratio 1.2 08/30/24 19:30 08/30/24 19:30 Orders (Tests/Meds): ED MEDICATIONS Generic Name Dose Route Start Last Admin Trade Name Taqueria PRN Reason Stop Dose Admin Sodium Chloride 10 ml 08/30/24 19:49 08/30/24 19:50 Sodium Chloride 0.9% 10ml Syr (Rad Only) IV 09/29/24 19:48 10 ml NEEDED PRN Administration Maintain IV Site Discontinued Medications Generic Name Dose Route Start Last Admin Trade Name Taqueria PRN Reason Stop Dose Admin Hydromorphone HCl 1 mg 08/30/24 19:12 08/30/24 19:36 Hydromorphone 2mg/Ml Syringe IV 08/30/24 19:13 1 mg ONCE ONE Administration Hydromorphone HCl 1 mg 08/30/24 20:07 08/30/24 20:13 Hydromorphone 2mg/Ml Syringe IV 08/30/24 20:08 1 mg ONCE ONE Administration Iopamidol 75 ml 08/30/24 19:49 08/30/24 19:50 Iopamidol-370 (76%);100ml Bottle IV 08/30/24 19:50 75 ml ONCE ONE Administration Ketorolac Tromethamine 15 mg 08/30/24 19:12 08/30/24 19:37 Ketorolac 30mg/Ml Vial IV 08/30/24 19:13 15 mg ONCE ONE Administration Ondansetron HCl 4 mg 08/30/24 19:12 08/30/24 19:37 Ondansetron 4mg/2ml Vial IV 08/30/24 19:13 4 mg ONCE ONE Administration ORDERS Category Date Time Status CT abdomen pelvis w con Stat Cat Scan 08/30/24 19:12 Completed CBC w/Auto Diff [Complete Blood Count Auto Diff] Stat Lab 08/30/24 19:30 Completed CMP [Comprehensive Metabolic Panel] Stat Lab 08/30/24 19:30 Completed HIV Combo Routine Lab 08/30/24 19:30 Received Hepatitis C Ab Qual. W/ RFX Routine Lab 08/30/24 19:30 Received Lactic Acid Stat Lab 08/30/24 19:30 Completed UA [Urinalysis and Microscopic] Stat Lab 08/30/24 19:22 Completed Medical Decision Narrative: This is a 44-year-old male presenting with right inguinal hernia. Patient states that a few days prior to this he was lifting a bed frame and had an acute pain on his right side near his groin. Since that time, noticed a hernia this been progressively larger and more painful. Today, pain got to the point where he was unable to tolerate it, so came to the emergency department. Currently 10 out of 10, does not radiate, sharp, associated with nausea. Patient has not had vomiting. Had a bowel movement just prior to this visit, still passing gas. Has not taken anything for the pain. History was obtained via conversation with patient. On arrival, patient hemodynamically stable, alert, oriented x4, appropriate, GCS 15, moving all extremities spontaneously, pupils equal and reactive to light. Full physical exam performed and significant for 44-year-old male who is in significant pain secondary to hernia in his right groin. Appears to have been a direct inguinal hernia that does not go into the scrotum. Soft, significantly tender. No overlying skin changes. Bowel sounds heard within hernia sac. Testicular exam normal. Abdominal exam without tenderness. Differential includes strangulated, incarcerated, bowel necrosis, small bowel obstruction, among others. Patient placed on continuous cardiac monitoring and continuous pulse ox with initial blood pressure 160/120, heart rate 94, saturation 98% on room air. Patient was given 15 mg Toradol, 1 mg Dilaudid, 4 mg Zofran for symptomatic management and correction of underlying abnormalities. Workup independently interpreted and significant for nonactionable CBC. Lactate mildly elevated 2.2, LFTs mildly and chronically elevated, likely secondary to underlying hepatitis. Urinalysis with hematuria, no evidence of infection. On independent interpretation of imaging, patient has hernia sac with stool contents, that wall thickening and fat stranding in the area. See radiology read for full review of final results. Aspect placed, patient placed in Trendelenburg. Given substantial amount of pain and persistent tachycardia and hypertension despite Dilaudid, patient given another milligram of Dilaudid. On reevaluation, still in substantial pain. Hernia sac still present. I contacted surgeon on-call to come evaluate patient who graciously agreed. By the time the surgeon arrived, hernia sac is largely reduced itself, but patient still very obviously in moderate to severe pain stating that it comes in waves. Surgery offered patient inpatient versus outpatient follow-up to have hernia repaired in the next couple of days. Patient states that he would think about it. On further conversation with patient regarding social determinants of health, patient does not have a ride to and from the hospital and has no ability to get pain meds tonight, given pharmacies are closed ended 9 PM. Because of this, I feel patient is high risk of decompensation if being sent home and would benefit from inpatient admission, inpatient surgery consult for direct inguinal hernia repair and pain control. Given patient presentation, workup, history, this most likely represents direct inguinal hernia. Because patient high risk for clinical decompensation, deemed appropriate for inpatient admission. Results were relayed to patient who voiced understanding and patient was agreeable to inpatient admission and management. Patient was admitted to the hospital for further definitive management. Team Psychologist disclaimer Much of this encounter note is an electronic etiology teacher spoken language to printed text. Electronic etiology teacher of the spoken language may permit errors. Although I have reviewed the note, some errors may still exist. Critical Care Critical Care Time Critical Care Time: No
[2024-08-30 19:45] LABS: Basophils % 0.5 % (0.1-2.0); Eosinophils # 0.1 K/mm3 (0.0-0.4); Eosinophils % 1.6 % (0.1-12.0); Hematocrit 38.7 % (42.0-52.0); Hemoglobin 13.1 g/dL (14.1-18.0); Lymphocytes # 1.7 K/mm3 (0.7-4.5); Lymphocytes % 23.1 % (10-50); Mean Corpuscular HGB Conc 33.9 g/dL (31.8-35.4); Mean Corpuscular Hemoglobin 29.8 pg (27.0-31.2); Mean Corpuscular Volume 88.2 fl (80-94); Mean Platelet Volume 9.8 fl (7.4-10.4); Monocytes # 0.6 K/mm3 (0.1-1.0); Monocytes % 7.3 % (1.7-9.3); Neutrophils # 5.1 K/mm3 (1.8-7.8); Neutrophils % 67.4 % (37.0-80.0); Platelet Count 148 K/mm3 (142-424); Red Blood Count 4.39 M/mm3 (4.60-6.20); Red Cell Distribution Width 13.7 % (11.5-17.5); White Blood Count 7.5 K/mm3 (4.8-10.8)
[2024-08-30] MEDS: SODIUM CHLORIDE 0.9% 10ML SYR (RAD ONLY) 10 ML IV (19:50)
[2024-08-30] MEDS: IOPAMIDOL-370 (76%);100ML BOTTLE 75 ML IV (19:50)
--- NOTE | 2024-08-30 19:52 | PC.NURSE ---
Pt back from CT scan
[2024-08-30 19:56] LABS: Alanine Aminotransferase 88 U/L (12-78); Albumin Level 3.8 g/dl (3.5-5.0); Albumin/Globulin Ratio 1.2 (1.1-1.8); Alkaline Phosphatase 135 U/L (38-126); Anion Gap 10.5 mEq/L (5-15); Aspartate Amino Transferase 83 U/L (17-59); Bilirubin,Total 0.4 mg/dl (0.2-1.3); Blood Urea Nitrogen 16 mg/dl (9-20); Calcium 9.1 mg/dl (8.4-10.2); Carbon Dioxide 30 mmol/L (22.0-30.0); Chloride 101 mmol/L (98-107); Creatinine Clearance Estimated 99 mL/min (50-200); Estimated Glomerular Filt Rate 91 ml/min (>60); GFR (African American) 110 ML/MIN (>60); Globulin 3.3 g/dL (1.3-3.2); Glucose 129 mg/dl (74-100); Potassium 3.5 mmoL/L (3.5-5.1); Sodium 138 mmol/L (136-145); Total Protein,Serum 7.1 g/dl (6.3-8.2)
[2024-08-30 19:59] LABS: Calcium Oxalate Crystals,Urine 1+ /lpf; Mucus,Urine 2+ /lpf; RBC,Urine TNTC #/hpf (0-3)
[2024-08-30 20:00] VITALS: BP 140/104; PULSE 103; O2SAT 98
[2024-08-30 20:00] LABS: Lactic Acid 2.2 mmol/L (0.7-2.1)
--- NOTE | 2024-08-30 20:31 | PC.NURSE ---
surgeon at bedside
--- NOTE | 2024-08-30 20:48 | PC.NURSE ---
home housekeeper notified of plans for admission
[2024-08-30 20:58] VITALS: PULSE 101; RESP 20; O2SAT 97
[2024-08-30 20:59] LABS: Hepatitis C Ab Qual. W/ RFX REACTIVE (Negative)
[2024-08-30 21:01] LABS: HIV Combo NEGATIVE (Negative)
--- NOTE | 2024-08-30 21:04 | PC.NURSE ---
Report called to [place] RN Pt transported to floor via wheelchair. Skin pink warm and dry Resp full and easy Speech clear and appropriate
[2024-08-30 21:08] VITALS: BP 136/89; PULSE 90; RESP 20; TEMP 36.8; O2SAT 98
[2024-08-30 21:11] VITALS: BP 154/94; PULSE 86; RESP 20; TEMP 36.6; O2SAT 97
--- NOTE | 2024-08-30 21:11 | ECG_ITS ---
APPROVED REPORT Exam: Resting ECG HR:74 bpm ECG Measurements Heart Rate 74 AXES [place] 137 P 75 QRSd 81 QRS 69 QT 381 T 68 QTc 408 Conclusion SINUS RHYTHM NORMAL ECG UNCONFIRMED REPORT Electronically signed by : Arnulfo Ruvalcaba MD 08/31/2024 21:05:25
--- NOTE | 2024-08-30 21:18 | PC.NURSE ---
Patient arrived to floor via stretcher from ED at 21:14.
[2024-08-30 21:31] VITALS: BMI 18.4
--- NOTE | 2024-08-30 21:37 | P.HP_ITS ---
<Statement entered by Woody Dumas MD - 09/06/24 14:20> I personally examined the patient and agree with the plan of care outlined by the MEDICAL RECORD TRANSCRIBER. History of Present Illness *Admission Date: 08/30/24 *Reason for visit:: Groin pain *History of present illness: This is a 44-year-old male who has a past medical history significant for drug abuse, hepatitis C, COVID-19, and corneal abrasion who presents with a chief complaint of right groin pain. Due to the patient's symptoms, he presented to the emergency room for evaluation. While in the emergency room, CT scan of the abdomen pelvis revealed a 3 cm right inguinal hernia containing a loop of nondilated small bowel, nodular hepatic contour suspicious for hepatic cirrhosis, and mild splenomegaly. While in emergency room, ice was applied to the area and he was placed in Trendelenburg and the initial edema associated with area improved. He was evaluated by general surgeon who recommended patient be seen in outpatient for possible surgical intervention; however, due to patient's social economic status with inability to obtain ride to see a general surgeon he has been admitted for possible surgical intervention tomorrow. During my evaluation of the patient, patient states he was lifting a bed frame and after lifting the frame he noticed that there was pain to his groin. The area progressively got worse with edema and pain. This is what prompted patient to come in for evaluation. Prior to this event, patient states that he was able to walk to and from his mailbox without any complications/shortness of breath and he was able to lift the bed frame. This is greater than 4 METS of tolerance. He is currently denied any chest pain, lightheadedness, dizziness, fever, chills, bilious emesis, nausea, vomiting, or diarrhea. Additional pertinent vitals obtained include a red blood cell count of 4.39, hemoglobin 13.1, hematocrit 38.7, blood glucose 129, lactate of 2.2, AST of 83, ALT of 88, alkaline phosphate of 135, and globin of 3.3. [facility] Disclaimer: The information contained in this section may have been updated after the patient was seen, as this information can be updated by other users. 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 current occupational exposures/hazards: Yes caffeine: Yes Have you lived/traveled outside US in past 30 days?: No Contact w/someone who lives/traveled outside US past 30 days?: No Exposure to someone with infectious disease in past 14 days?: No Do you have a fever (greater than 100.4 F or 38 C)?: No Have you tested positive for COVID-19: No Exposed to someone with COVID-19 in past 14 days?: No Do you have a sore throat?: No Do you have a cough?: No Do you have any weakness?: No Are you experiencing any nausea/vomitting?: No Do you have any diarrhea?: No Are you experiencing any unusual bleeding?: No Do you have any muscle aches/pain?: No Do you have any abdominal pain?: No Are you experiencing loss of taste or smell?: No Other Medical History Have you received the Flu Vaccine for this season: No Have you received the Pneumonia Vaccine: No Review of Systems Review of Systems Review of systems:: pertinent systems reviewed and negative unless documented below Constitutional Constitutional: Reports system reviewed and no additional complaints, except as documented Eyes Eyes: Reports system reviewed and no additional complaints, except as documented ENT Ears, Nose, Mouth, and Throat: Reports system reviewed and no additional complaints, except as documented *Cardiovascular Cardiovascular: Reports system reviewed and no additional complaints, except as documented *Respiratory Respiratory: Reports system reviewed and no additional complaints, except as documented *Gastrointestinal Gastrointestinal: Reports abdominal pain *Genitourinary Genitourinary: Reports system reviewed and no additional complaints, except as documented *Musculoskeletal Musculoskeletal: Reports system reviewed and no additional complaints, except as documented Integumentary/Breasts Skin/Breast: Reports system reviewed and no additional complaints, except as documented *Neurologic Neurologic: Reports system reviewed and no additional complaints, except as documented Psychiatric Psychiatric: Reports system reviewed and no additional complaints, except as documented Endocrine Endocrine: Reports system reviewed and no additional complaints, except as documented Hematologic/Lymphatic Hematologic/Lymphatic: Reports system reviewed and no additional complaints, except as documented Allergic/Immunologic Allergic/Immunologic: Reports system reviewed and no additional complaints, except as documented Meds Home Medications and Allergies Home Medications ?Medication ?Instructions ?Recorded ?Confirmed ?Type No Known Home Medications 08/30/24 08/30/24 History New Prescriptions to Start Prescriptions: Allergies Allergy/AdvReac Type Severity Reaction Status Date / Time No Known Allergies Allergy Verified 10/18/20 15:31 Exam Data for Last 24 hours Vital signs and Labs for Last 24 Hours: Temp Pulse Resp BP Pulse Ox O2 Del Method 97.9 F 86 20 154/94 H 97 Nasal Cannula 08/30/24 21:11 08/30/24 21:11 08/30/24 21:11 08/30/24 21:11 08/30/24 21:11 08/30/24 21:11 Laboratory Results - last 24 hr 08/30/24 19:22: Urine Color Yellow, Urine Appearance Clear, Urine pH 6.0, Ur Specific [place] >= 1.030, Urine Protein Negative, Urine Glucose (UA) Negative, Urine Ketones Trace, Urine Blood 3+ A, Urine Nitrate Negative, Urine Bilirubin N egative, Urine Urobilinogen 2.0, Ur Leukocyte Esterase Negative, Urine RBC Tntc, Urine WBC 3-5, Ur Squamous Epith Cells 3-5, Calcium Oxalate Crystal 1+, Urine Mucus 2+ 08/30/24 19:30: WBC 7.5, RBC 4.39 L, Hgb 13.1 L, Hct 38.7 L, MCV 88.2, MCH 29.8, MCHC 33.9, RDW 13.7, Plt Count 148, MPV 9.8, Neut % (Auto) 67.4, Lymph % (Auto) 23.1, [place] % (Auto) 7.3, Eos % (Auto) 1.6, Baso % (Auto) 0.5, Neut # (Auto) 5.1, Lymph # (Auto) 1.7, [place] # (Auto) 0.6, Eos # (Auto) 0.1, Baso # (Auto) 0.0, Sodium 138, Potassium 3.5, Chloride 101, Carbon Dioxide 30, Anion Gap 10.5, BUN 16, Creatinine 0.90, Estimated Creat Clear 99, Estimated GFR 91, Est GFR ( Amer) 110, Glucose 129 H, Lactate 2.2 H, Calcium 9.1, Total Bilirubin 0.4, AST 83 H, ALT 88 H, Alkaline Phosphatase 135 H, Total Protein 7.1, Albumin 3.8, Globulin 3.3 H, Albumin/Globulin Ratio 1.2, HCV Ab TRELL w/Rflx PCR Qn Reactive, HIV Ag/Ab Combo Qual Negative I & O for Last 24 hours: Intake & Output 08/27/24 08/28/24 08/29/24 08/30/24 23:59 23:59 23:59 23:59 Weight 61.734 kg Constitutional Constitutional: no acute distress *Routine HEENT Exam Head: Present normocephalic and atraumatic Eye: Present EOMI, PERRL and normal accommodation ENT: Present mucous membranes moist *Routine Neck Exam Neck: Present supple and full ROM *Routine Respiratory Exam Respiratory: Present normal respiratory effort, able to speak in complete sentences and symmetric chest movement *Routine Cardiovascular Exam Cardiovascular: Present RRR, Normal S1 and Normal S2 *Routine Abdominal Exam Abdominal: Present mass Comments: Nonreducible right groin hernia *Routine Rectal Exam Rectal:: deferred *Routine Genitalia Exam Genitalia:: normal male *Routine Extremities Exam Extremities: Present full ROM Routine Back/Spine/Pelvis Exam Back/Spine: Present full ROM *Routine Skin Exam Skin: Present intact, warm and normal turgor *Routine Neurological Exam Neurological: Present alert, oriented X3, CN II-XII intact, moving all extremities and normal speech Routine Psychiatric Exam Psychiatric: Present normal affect, normal thought process, cooperative, good insight and good judgment H&P: Result Impressions 44-year-old male presents with abdominal pain after lifting a bed frame found to have a nonreducible inguinal hernia that improved with ice and Trendelenburg positioning. General surgeon voices willingness to take patient to the OR for surgical fixation in the a.m. Assessment and Plan *Assessment and plan (1) Inguinal hernia: Status: Acute Qualifiers: Laterality: unilateral Obstruction and gangrene presence: without obstruction or gangrene Recurrence: not specified as recurrent Qualified Code(s): K40.90 - Unilateral inguinal hernia, without obstruction or gangrene, not specified as recurrent Category: Medical Code(s): K40.90 - Unilateral inguinal hernia, without obstruction or gangrene, not specified as recurrent (2) Hepatic cirrhosis: Status: Acute Qualifiers: Hepatic cirrhosis type: other cirrhosis Qualified Code(s): K74.69 - Other cirrhosis of liver Category: Medical Code(s): K74.60 - Unspecified cirrhosis of liver (3) Lactic acidosis: Status: Acute Category: Medical Code(s): E87.20 - Acidosis, unspecified (4) Transaminitis: Status: Acute Category: Medical Code(s): R74.01 - Elevation of levels of liver transaminase levels (5) Intractable abdominal pain: Status: Acute Category: Medical Code(s): R10.9 - Unspecified abdominal pain Plan Assessment Inguinal hernia -Consult general surgeon -Patient has revised cardiac index of 0 which is a 3.9% risk of cardiac event-he has no significant cardiac history -Other than general risk to anesthesia this represents mild risk to surgery Hepatic cirrhosis/transaminitis: None decompensated; seen on imaging -Unable to calculate sodium MELD score/child hackett score due to no INR -Will obtain INR in the a.m. -Prior CMP reveals transaminitis is at baseline -Monitor CMP daily -If patient starts to decompensate we will obtain liver workup and consult GI Lactic acidosis -Normal saline at 100 mL an hour -Repeat lactic acid level in a.m. Intractable abdominal pain -1 mg of hydromorphone IV push every 4 hours as needed severe pain -5 mg [place] p.o. every 4 hours as needed moderate pain Plan: Admit patient to the MedSurg unit EKG for presurgical clearance Activity as tolerated SCDs to bilateral lower EXTR Vital signs every shift Regular diet and then n.p.o. after midnight Repeat venous lactic acid in a.m. CBC/CMP daily Normal saline at 100 mL is now 40 mg Lovenox subcu daily for DVT prophylax 4 mg Zofran IV push to 8 hours. Nausea vomiting/full code I will discuss this case with Dr. Dumas and the look forward to more input
[2024-08-30] MEDS: 0.9 % SODIUM CHLORIDE 1000ML 1,000 ML 100 ML IV (21:40)
[2024-08-30] MEDS: HYDROCODONE/APAP 5/325 MG TABLET 1 TAB PO (22:00)
[2024-08-30 23:38] LABS: Reflex Lactic Add Lactic Reflex
[2024-08-31 00:20] LABS: Lactic Acid Follow Up (RFLX 1) 1.4 mmol/L (0.7-2.1)
[2024-08-31] MEDS: HYDROMORPHONE 2MG/ML SYRINGE 1 MG IV ×2 (03:12→08:00)
--- NOTE | 2024-08-31 03:21 | PC.NURSE ---
Mr Willem Simpson was newly admitted this shift on behalf of a protruding inguinal hernia and right groin pain. He is alert and oriented x4. A case management consult was entered per protocol on behalf of the patient's financial strain, homelessness, drug use (reported meth use), difficulty buying food, and help with finding employment. He has complained of consistent groin discomfort and significant pain this shift. He reported that the size of his inguinal hernia to the right of his groin increases/decreases depending on his positioning. Patient ambulates independently in his room/to the bathroom without difficulties, but with continuation of reported groin pain. Pain has been treated with [place] and Dilautid this shift. Ice pack application favored. Normal saline infusion is currently infusing at 100 mL/hr. Patient does not take any home medications. Admission assessments completed by charge nurse (Natasha Stephen RN). Auscultation of his heart, lungs, and bowels were within normal findings. Patient requested a sandwich, a few cups of ice cream, and a Pepsi soda to drink prior to midnight; he has remained NPO pending general surgery consult. At this time, the patient is resting supine in bed. Blood pressure slightly elevated; other vital signs stable. Call light within reach.
[2024-08-31 04:00] VITALS: BP 127/77; PULSE 78; RESP 16; TEMP 36.8; O2SAT 99; BMI 18.4
[2024-08-31 06:25] LABS: Basophils % 0.8 % (0.1-2.0); Eosinophils # 0.2 K/mm3 (0.0-0.4); Eosinophils % 2.8 % (0.1-12.0); Hematocrit 34.5 % (42.0-52.0); Lymphocytes # 1.6 K/mm3 (0.7-4.5); Lymphocytes % 30.5 % (10-50); Mean Corpuscular HGB Conc 32.8 g/dL (31.8-35.4); Mean Corpuscular Hemoglobin 29.7 pg (27.0-31.2); Mean Corpuscular Volume 90.6 fl (80-94); Mean Platelet Volume 9.7 fl (7.4-10.4); Monocytes # 0.5 K/mm3 (0.1-1.0); Monocytes % 9.4 % (1.7-9.3); Neutrophils % 56.3 % (37.0-80.0); Platelet Count 119 K/mm3 (142-424); Red Blood Count 3.81 M/mm3 (4.60-6.20); Red Cell Distribution Width 13.9 % (11.5-17.5); White Blood Count 5.3 K/mm3 (4.8-10.8)
[2024-08-31 06:28] LABS: INR 1.03 (0.9-1.1); Prothrombin Time 11.3 seconds (9.2-12.1)
[2024-08-31 06:37] LABS: Albumin Level 3.1 g/dl (3.5-5.0); Chloride 103 mmol/L (98-107); Sodium 138 mmol/L (136-145)
[2024-08-31 06:38] LABS: Potassium 3.8 mmoL/L (3.5-5.1)
[2024-08-31 06:40] LABS: Alanine Aminotransferase 76 U/L (12-78); Albumin/Globulin Ratio 1.1 (1.1-1.8); Alkaline Phosphatase 111 U/L (38-126); Anion Gap 7.8 mEq/L (5-15); Aspartate Amino Transferase 81 U/L (17-59); Bilirubin,Total 0.2 mg/dl (0.2-1.3); Blood Urea Nitrogen 17 mg/dl (9-20); Carbon Dioxide 31 mmol/L (22.0-30.0); Creatinine Clearance Estimated 101 mL/min (50-200); Estimated Glomerular Filt Rate 104 ml/min (>60); GFR (African American) 126 ML/MIN (>60); Globulin 2.8 g/dL (1.3-3.2); Total Protein,Serum 5.9 g/dl (6.3-8.2)
[2024-08-31 06:41] LABS: Calcium 8.2 mg/dl (8.4-10.2); Glucose 88 mg/dl (74-100)
[2024-08-31 06:57] LABS: Hemoglobin 11.3 g/dL (14.1-18.0)
[2024-08-31 07:25] VITALS: BP 142/72; PULSE 68; RESP 18; TEMP 36.6; O2SAT 99
--- NOTE | 2024-08-31 07:51 | P.CONS_ITS ---
History of Present Illness *Admission Date: 08/30/24 *Reason for visit:: Right inguinal hernia *History of present illness: This is a 44-year-old gentleman seen in consultation after evaluation emergency department for right groin pain. Evaluation revealed direct inguinal hernia and right fairly severe associated pain/tenderness. Spontaneous reduction noted during emergency department. The patient was admitted overnight secondary to ongoing discomfort. This morning he states that he is doing a little better . He states that he had a little trouble with the hernia last night but it is flat now . Forwarded from admission H&P/emergency department evaluation: This is a 44-year-old male who has a past medical history significant for drug abuse, hepatitis C, COVID-19, and corneal abrasion who presents with a chief complaint of right groin pain. Due to the patient's symptoms, he presented to the emergency room for evaluation. While in the emergency room, CT scan of the abdomen pelvis revealed a 3 cm right inguinal hernia containing a loop of nondilated small bowel, nodular hepatic contour suspicious for hepatic cirrhosis, and mild splenomegaly. While in emergency room, ice was applied to the area and he was placed in Trendelenburg and the initial edema associated with area improved. He was evaluated by general surgeon who recommended patient be seen in outpatient for possible surgical intervention; however, due to patient's social economic status with inability to obtain ride to see a general surgeon he has been admitted for possible surgical intervention tomorrow. During my evaluation of the patient, patient states he was lifting a bed frame and after lifting the frame he noticed that there was pain to his groin. The area progressively got worse with edema and pain. This is what prompted patient to come in for evaluation. Prior to this event, patient states that he was able to walk to and from his mailbox without any complications/shortness of breath and he was able to lift the bed frame. This is greater than 4 METS of tolerance. He is currently denied any chest pain, lightheadedness, dizziness, fever, chills, bilious emesis, nausea, vomiting, or diarrhea. Additional pertinent vitals obtained include a red blood cell count of 4.39, hemoglobin 13.1, hematocrit 38.7, blood glucose 129, lactate of 2.2, AST of 83, ALT of 88, alkaline phosphate of 135, and globin of 3.3. [facility] Disclaimer: The information contained in this section may have been updated after the patient was seen, as this information can be updated by other users. 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 current occupational exposures/hazards: Yes caffeine: Yes Have you lived/traveled outside [place] in past 30 days?: No Contact w/someone who lives/traveled outside US past 30 days?: No Exposure to someone with infectious disease in past 14 days?: No Do you have a fever (greater than 100.4 F or 38 C)?: No Have you tested positive for COVID-19: No Exposed to someone with COVID-19 in past 14 days?: No Do you have a sore throat?: No Do you have a cough?: No Do you have any weakness?: No Are you experiencing any nausea/vomitting?: No Do you have any diarrhea?: No Are you experiencing any unusual bleeding?: No Do you have any muscle aches/pain?: No Do you have any abdominal pain?: No Are you experiencing loss of taste or smell?: No Review of Systems *Neurologic Neurologic: Reports system reviewed and no additional complaints, except as documented Meds Home Medications and Allergies Home Medications ?Medication ?Instructions ?Recorded ?Confirmed ?Type No Known Home Medications 08/30/24 08/30/24 History New Prescriptions to Start Prescriptions: Allergies Allergy/AdvReac Type Severity Reaction Status Date / Time No Known Allergies Allergy Verified 10/18/20 15:31 Exam (Inpt) Vital signs and Labs for Last 24 Hours: Temp Pulse Resp BP Pulse Ox O2 Del Method 97.9 F 68 18 142/72 H 99 Room Air 08/31/24 07:08/31/24 07:08/31/24 07:25 08/31/24 07:25 08/31/24 07:08/31/24 07:25 Laboratory Results - last 24 hr 08/30/24 19:22: Urine Color Yellow, Urine Appearance Clear, Urine pH 6.0, Ur Specific [place] >= 1.030, Urine Protein Negative, Urine Glucose (UA) Negative, Urine Ketones Trace, Urine Blood 3+ A, Urine Nitrate Negative, Urine Bilirubin Negative, Urine Urobilinogen 2.0, Ur Leukocyte Esterase Negative, Urine RBC Tntc, Urine WBC 3-5, Ur Squamous Epith Cells 3-5, Calcium Oxalate Crystal 1+, Urine Mucus 2+ 08/30/24 19:30: WBC 7.5, RBC 4.39 L, Hgb 13.1 L, Hct 38.7 L, MCV 88.2, MCH 29.8, MCHC 33.9, RDW 13.7, Plt Count 148, MPV 9.8, Neut % (Auto) 67.4, Lymph % (Auto) 23.1, [place] % (Auto) 7.3, Eos % (Auto) 1.6, Baso % (Auto) 0.5, Neut # (Auto) 5.1, Lymph # (Auto) 1.7, [place] # (Auto) 0.6, Eos # (Auto) 0.1, Baso # (Auto) 0.0, Sodium 138, Potassium 3.5, Chloride 101, Carbon Dioxide 30, Anion Gap 10.5, BUN 16, Creatinine 0.90, Estimated Creat Clear 99, Estimated GFR 91, Est GFR ( Amer) 110, Glucose 129 H, Lactate 2.2 H, Calcium 9.1, Total Bilirubin 0.4, AST 83 H, ALT 88 H, Alkaline Phosphatase 135 H, Total Protein 7.1, Albumin 3.8, Globulin 3.3 H, Albumin/Globulin Ratio 1.2, HCV Ab TRELL w/Rflx PCR Qn Reactive, HIV Ag/Ab Combo Qual Negative 08/31/24 00:04: Lactate 1.4 08/31/24 06:08: WBC 5.3 D, RBC 3.81 L, Hgb 11.3 L D, Hct 34.5 L, MCV 90.6, MCH 29.7, MCHC 32.8, RDW 13.9, Plt Count 119 L, MPV 9.7, Neut % (Auto) 56.3, Lymph % (Auto) 30.5, [place] % (Auto) 9.4 H, Eos % (Auto) 2.8, Baso % (Auto) 0.8, Neut # (Auto) 3.0, Lymph # (Auto) 1.6, [place] # (Auto) 0.5, Eos # (Auto) 0.2, Baso # (Auto) 0.0, PT 11.3, INR 1.03, Sodium 138, Potassium 3.8, Chloride 103, Carbon Dioxide 31 H, Anion Gap 7.8, BUN 17, Creatinine 0.80, Estimated Creat Clear 101, Estimated GFR 104, Est GFR ( Amer) 126, Glucose 88 D, Lactate 1.0, C alcium 8.2 L, Total Bilirubin 0.2, AST 81 H, ALT 76, Alkaline Phosphatase 111, T otal Protein 5.9 L, Albumin 3.1 L D, Globulin 2.8, Albumin/Globulin Ratio 1.1 I & O for Labs for Last 24 Hours: Intake & Output 08/28/24 08/29/24 08/30/24 08/31/24 11:59 11:59 11:59 11:59 Intake Total 984 / 984 Output Total 0 / 0 Balance 984 / 984 Weight 136 lb 1.6 oz Constitutional: no acute distress Respiratory: Absent respiratory distress GI: Present soft and tenderness (Tenderness throughout right mid/lower abdomen and right groin. Currently without evidence of incarceration.) Results Labs 08/31/24 06:08 08/31/24 06:08 Labs: Laboratory Results - last 24 hr 08/30/24 19:22: Urine Color Yellow, Urine Appearance Clear, Urine pH 6.0, Ur Specific [place] >= 1.030, Urine Protein Negative, Urine Glucose (UA) Negative, Urine Ketones Trace, Urine Blood 3+ A, Urine Nitrate Negative, Urine Bilirubin Negative, Urine Urobilinogen 2.0, Ur Leukocyte Esterase Negative, Urine RBC Tntc, Urine WBC 3-5, Ur Squamous Epith Cells 3-5, Calcium Oxalate Crystal 1+, Urine Mucus 2+ 08/30/24 19:30: WBC 7.5, RBC 4.39 L, Hgb 13.1 L, Hct 38.7 L, MCV 88.2, MCH 29.8, MCHC 33.9, RDW 13.7, Plt Count 148, MPV 9.8, Neut % (Auto) 67.4, Lymph % (Auto) 23.1, [place] % (Auto) 7.3, Eos % (Auto) 1.6, Baso % (Auto) 0.5, Neut # (Auto) 5.1, Lymph # (Auto) 1.7, [place] # (Auto) 0.6, Eos # (Auto) 0.1, Baso # (Auto) 0.0, Sodium 138, Potassium 3.5, Chloride 101, Carbon Dioxide 30, Anion Gap 10.5, BUN 16, Creatinine 0.90, Estimated Creat Clear 99, Estimated GFR 91, Est GFR ( Amer) 110, Glucose 129 H, Lactate 2.2 H, Calcium 9.1, Total Bilirubin 0.4, AST 83 H, ALT 88 H, Alkaline Phosphatase 135 H, Total Protein 7.1, Albumin 3.8, Globulin 3.3 H, Albumin/Globulin Ratio 1.2, HCV Ab TRLEL w/Rflx PCR Qn Reactive, HIV Ag/Ab Combo Qual Negative 08/31/24 00:04: Lactate 1.4 08/31/24 06:08: WBC 5.3 D, RBC 3.81 L, Hgb 11.3 L D, Hct 34.5 L, MCV 90.6, MCH 29.7, MCHC 32.8, RDW 13.9, Plt Count 119 L, MPV 9.7, Neut % (Auto) 56.3, Lymph % (Auto) 30.5, [place] % (Auto) 9.4 H, Eos % (Auto) 2.8, Baso % (Auto) 0.8, Neut # (Auto) 3.0, Lymph # (Auto) 1.6, [place] # (Auto) 0.5, Eos # (Auto) 0.2, Baso # (Auto) 0.0, PT 11.3, INR 1.03, Sodium 138, Potassium 3.8, Chloride 103, Carbon Dioxide 31 H, Anion Gap 7.8, BUN 17, Creatinine 0.80, Estimated Creat Clear 101, Estimated GFR 104, Est GFR ( Amer) 126, Glucose 88 D, Lactate 1.0, C alcium 8.2 L, Total Bilirubin 0.2, AST 81 H, ALT 76, Alkaline Phosphatase 111, T otal Protein 5.9 L, Albumin 3.1 L D, Globulin 2.8, Albumin/Globulin Ratio 1.1 Assessment and Plan *Assessment and plan (1) Inguinal hernia: Status: Acute Qualifiers: Obstruction and gangrene presence: without obstruction or gangrene L aterality: unilateral Recurrence: not specified as recurrent Qualified Code(s): K40.90 - Unilateral inguinal hernia, without obstruction or gangrene, not specified as recurrent Category: Medical Code(s): K40.90 - Unilateral inguinal hernia, without obstruction or gangrene, not specified as recurrent Plan: No evidence of incarceration currently. No need for emergent surgical intervention; however, elective repair in the very near future reasonable. Tentatively, the plan is to add the patient to tomorrow's operative schedule. I have discussed the risks and benefits including, but not limited to: Bleeding Infection Damage to surrounding tissue Inherent risks of sedation The patient agrees to proceed.
[2024-08-31] MEDS: ENOXAPARIN 40MG/0.4ML SYRINGE 40 MG SUBCUT (07:59)
--- NOTE | 2024-08-31 08:33 | SW/DCPLANNER ---
I received a consult on this patient regarding assistance w/ resources. I spoke w/ patient this AM regarding discharge plans and resources. Patient stated that he will have housing and transportation provided by his father at time of discharge. Patient did ask for resources including housing and contact information. I have provided this patient w/ [facility] Resource List that will include that information. I also informed patient that I would reach out to our Financial Counselor and have her speak w/ him regarding health insurance. Patient is agreeable w/ this plan. Patient did not have any further questions at this time. Per MD the plan is for patient to discharge home today and follow up w/ surgery as an outpatient possibly tomorrow.
[2024-08-31] MEDS: 0.9 % SODIUM CHLORIDE 1000ML 1,000 ML 100 ML IV (09:00)
[2024-08-31] MEDS: HYDROCODONE/APAP 5/325 MG TABLET 1 TAB PO (09:38)
--- NOTE | 2024-08-31 13:26 | EXP.DC.SUM ---
General Admission date:: 08/30/24 HPI HPI HPI: This is a 44-year-old gentleman seen in consultation after evaluation emergency department for right groin pain. Evaluation revealed direct inguinal hernia and right fairly severe associated pain/tenderness. Spontaneous reduction noted during emergency department. The patient was admitted overnight secondary to ongoing discomfort. This morning he states that he is doing a little better . He states that he had a little trouble with the hernia last night but it is flat now . Forwarded from admission H&P/emergency department evaluation: This is a 44-year-old male who has a past medical history significant for drug abuse, hepatitis C, COVID-19, and corneal abrasion who presents with a chief complaint of right groin pain. Due to the patient's symptoms, he presented to the emergency room for evaluation. While in the emergency room, CT scan of the abdomen pelvis revealed a 3 cm right inguinal hernia containing a loop of nondilated small bowel, nodular hepatic contour suspicious for hepatic cirrhosis, and mild splenomegaly. While in emergency room, ice was applied to the area and he was placed in Trendelenburg and the initial edema associated with area improved. He was evaluated by general surgeon who recommended patient be seen in outpatient for possible surgical intervention; however, due to patient's social economic status with inability to obtain ride to see a general surgeon he has been admitted for possible surgical intervention tomorrow. During my evaluation of the patient, patient states he was lifting a bed frame and after lifting the frame he noticed that there was pain to his groin. The area progressively got worse with edema and pain. This is what prompted patient to come in for evaluation. Prior to this event, patient states that he was able to walk to and from his mailbox without any complications/shortness of breath and he was able to lift the bed frame. This is greater than 4 METS of tolerance. He is currently denied any chest pain, lightheadedness, dizziness, fever, chills, bilious emesis, nausea, vomiting, or diarrhea. Additional pertinent vitals obtained include a red blood cell count of 4.39, hemoglobin 13.1, hematocrit 38.7, blood glucose 129, lactate of 2.2, AST of 83, ALT of 88, alkaline phosphate of 135, and globin of 3.3. Hospital Course Hospital Course Hospital Course: Willem Simpson is a 44-year-old male who presented with abdominal pain and admitted for right incarcerated inguinal hernia. #Incarcerated right inguinal hernia ? Patient's incarcerated hernia self reduced after applying ice packs in the ED. However, patient continues to have significant inguinal pain and therefore admitted. ? General Surgery consulted and discussed extensively, agreed incarcerated hernia has self reduced. Planning for surgical fixation tomorrow as an outpatient. ? Patient at this time does not have medical insurance unfortunately. Our financial team is aware and will reach out to patient. ? Discharged with hydrocodone/acetaminophen for 3 days. Surgery tentatively planned for tomorrow (09/01/2024) at 8:30 AM. Total time spent on discharge: 32 minutes on chart review, counseling, documentation, and direct care with patient. Exam Data for Last 24 hours Vital signs and Labs for Last 24 Hours: Temp Pulse Resp BP Pulse Ox O2 Del Method 97.9 F 68 18 142/72 H 99 Room Air 08/31/24 07:08/31/24 07:25 08/31/24 07:08/31/24 07:08/31/24 07:08/31/24 10:44 Laboratory Results - last 24 hr 08/30/24 19:22: Urine Color Yellow, Urine Appearance Clear, Urine pH 6.0, Ur Specific [place] >= 1.030, Urine Protein Negative, Urine Glucose (UA) Negative, Urine Ketones Trace, Urine Blood 3+ A, Urine Nitrate Negative, Urine Bilirubin Negative, Urine Urobilinogen 2.0, Ur Leukocyte Esterase Negative, Urine RBC Tntc, Urine WBC 3-5, Ur Squamous Epith Cells 3-5, Calcium Oxalate Crystal 1+, Urine Mucus 2+ 08/30/24 19:30: WBC 7.5, RBC 4.39 L, Hgb 13.1 L, Hct 38.7 L, MCV 88.2, MCH 29.8, MCHC 33.9, RDW 13.7, Plt Count 148, MPV 9.8, Neut % (Auto) 67.4, Lymph % (Auto) 23.1, [place] % (Auto) 7.3, Eos % (Auto) 1.6, Baso % (Auto) 0.5, Neut # (Auto) 5.1, Lymph # (Auto) 1.7, [place] # (Auto) 0.6, Eos # (Auto) 0.1, Baso # (Auto) 0.0, Sodium 138, Potassium 3.5, Chloride 101, Carbon Dioxide 30, Anion Gap 10.5, BUN 16, Creatinine 0.90, Estimated Creat Clear 99, Estimated GFR 91, Est GFR ( Amer) 110, Glucose 129 H, Lactate 2.2 H, Calcium 9.1, Total Bilirubin 0.4, AST 83 H, ALT 88 H, Alkaline Phosphatase 135 H, Total Protein 7.1, Albumin 3.8, Globulin 3.3 H, Albumin/Globulin Ratio 1.2, HCV Ab TRELL w/Rflx PCR Qn Reactive, HIV Ag/Ab Combo Qual Negative 08/31/24 00:04: Lactate 1.4 08/31/24 06:08: WBC 5.3 D, RBC 3.81 L, Hgb 11.3 L D, Hct 34.5 L, MCV 90.6, MCH 29.7, MCHC 32.8, RDW 13.9, Plt Count 119 L, MPV 9.7, Neut % (Auto) 56.3, Lymph % (Auto) 30.5, [place] % (Auto) 9.4 H, Eos % (Auto) 2.8, Baso % (Auto) 0.8, Neut # (Auto) 3.0, Lymph # (Auto) 1.6, [place] # (Auto) 0.5, Eos # (Auto) 0.2, Baso # (Auto) 0.0, PT 11.3, INR 1.03, Sodium 138, Potassium 3.8, Chloride 103, Carbon Dioxide 31 H, Anion Gap 7.8, BUN 17, Creatinine 0.80, Estimated Creat Clear 101, Estimated GFR 104, Est GFR ( Amer) 126, Glucose 88 D, Lactate 1.0, Calcium 8.2 L, Total Bilirubin 0.2, AST 81 H, ALT 76, Alkaline Phosphatase 111, Total Protein 5.9 L, Albumin 3.1 L D, Globulin 2.8, Albumin/Globulin Ratio 1.1 I & O for Last 24 hours: Intake & Output 08/28/24 08/29/24 08/30/24 08/31/24 23:59 23:59 23:59 23:59 Intake Total 984 / 984 720 / 720 Output Total 0 / 0 Balance 984 / 984 720 / 720 Weight 61.734 kg 61.734 kg Constitutional Constitutional: no acute distress *Routine HEENT Exam Head: Present normocephalic Eye: Present EOMI and PERRL ENT: Present mucous membranes moist *Routine Neck Exam Neck: Present supple; Absent lymphadenopathy *Routine Respiratory Exam Respiratory: Present CTA bilaterally *Routine Cardiovascular Exam Cardiovascular: Present RRR *Routine Abdominal Exam Abdominal: Present soft and normoactive bowel sounds; Absent tenderness Comments: Tenderness to palpation right inguinal area with mild protrusion, but no evidence of incarceration or strangulation. *Routine Extremities Exam Extremities: Absent cyanosis, clubbing or edema *Routine Skin Exam Skin: Present warm; Absent rash *Routine Neurological Exam Neurological: Present alert and oriented X3 Results Data Completed and Pending Labs on day of discharge: Labs from last 24 hours 08/31/24 08/31/24 08/30/24 06:08 00:04 19:30 WBC 5.3 D 7.5 RBC 3.81 L 4.39 L Hgb 11.3 L D 13.1 L Hct 34.5 L 38.7 L MCV 90.6 88.2 MCH 29.7 29.8 MCHC 32.8 33.9 RDW 13.9 13.7 Plt Count 119 L 148 MPV 9.7 9.8 Neut % (Auto) 56.3 67.4 Lymph % (Auto) 30.5 23.1 [place] % (Auto) 9.4 H 7.3 Eos % (Auto) 2.8 1.6 Baso % (Auto) 0.8 0.5 Neut # (Auto) 3.0 5.1 Lymph # (Auto) 1.6 1.7 [place] # (Auto) 0.5 0.6 Eos # (Auto) 0.2 0.1 Baso # (Auto) 0.0 0.0 PT 11.3 INR 1.03 Sodium 138 138 Potassium 3.8 3.5 Chloride 103 101 Carbon Dioxide 31 H 30 Anion Gap 7.8 10.5 BUN 17 16 Creatinine 0.80 0.90 Estimated Creat Clear 101 99 Estimated GFR 104 91 Est GFR ( Amer) 126 110 Glucose 88 D 129 H Lactate 1.0 1.4 2.2 H Calcium 8.2 L 9.1 Total Bilirubin 0.2 0.4 AST 81 H 83 H ALT 76 88 H Alkaline Phosphatase 111 135 H Total Protein 5.9 L 7.1 Albumin 3.1 L D 3.8 Globulin 2.8 3.3 H Albumin/Globulin Ratio 1.1 1.2 Urine Color Urine Appearance Urine pH Ur Specific [place] Urine Protein Urine Glucose (UA) Urine Ketones Urine Blood Urine Nitrate Urine Bilirubin Urine Urobilinogen Ur Leukocyte Esterase Urine RBC Urine WBC Ur Squamous Epith Cells Calcium Oxalate Crystal Urine Mucus HCV Ab TRELL w/Rflx PCR Qn Reactive HIV Ag/Ab Combo Qual Negative 08/30/24 19:22 WBC RBC Hgb Hct MCV MCH MCHC RDW Plt Count MPV Neut % (Auto) Lymph % (Auto) [place] % (Auto) Eos % (Auto) Baso % (Auto) Neut # (Auto) Lymph # (Auto) [place] # (Auto) Eos # (Auto) Baso # (Auto) PT INR Sodium Potassium Chloride Carbon Dioxide Anion Gap BUN Creatinine Estimated Creat Clear Estimated GFR Est GFR ( Amer) Glucose Lactate Calcium Total Bilirubin AST ALT Alkaline Phosphatase Total Protein Albumin Globulin Albumin/Globulin Ratio Urine Color Yellow Urine Appearance Clear Urine pH 6.0 Ur Specific [place] >= 1.030 Urine Protein Negative Urine Glucose (UA) Negative Urine Ketones Trace Urine Blood 3+ A Urine Nitrate Negative Urine Bilirubin Negative Urine Urobilinogen 2.0 Ur Leukocyte Esterase Negative Urine RBC Tntc Urine WBC 3-5 Ur Squamous Epith Cells 3-5 Calcium Oxalate Crystal 1+ Urine Mucus 2+ HCV Ab TRELL w/Rflx PCR Qn HIV Ag/Ab Combo Qual DS: Diagnosis Discharge Diagnosis (1) Inguinal hernia: Status: Acute Code(s): K40.90 - Unilateral inguinal hernia, without obstruction or gangrene, not specified as recurrent Qualifiers: Laterality: unilateral Obstruction and gangrene presence: without obstruction or gangrene Recurrence: not specified as recurrent Qualified Code(s): K40.90 - Unilateral inguinal hernia, without obstruction or gangrene, not specified as recurrent Meds Home Medications and Allergies Home Medications ?Medication ?Instructions ?Recorded ?Confirmed ?Type hydrocodone 5 mg-acetaminophen 325 1 tab PO Q4HP PRN Mild To Moderate 08/31/24 Rx mg tablet Pain (1-6) 3 days #18 tabs New Prescriptions to Start Prescriptions: hydrocodone-acetaminophen Woody Dumas Allergies Allergy/AdvReac Type Severity Reaction Status Date / Time No Known Allergies Allergy Verified 10/18/20 15:31 Discharge Plan Disposition Patient Disposition: Home, Self-Care Condition: Fair Discharge Order Discharge Orders: Discharge Order (Routine); Ordered 08/31/24 Ordered By: Woody Dumas Follow up Plan Follow up with: Cliff Horta MD [Staff Physician] - 09/01/24 7:00 am (register for surgery ) Prescriptions/Medication Reconciliation: New hydrocodone-acetaminophen 5-325 mg Tablet 1 tab PO Q4HP PRN (Reason: Mild To Moderate Pain (1-6)) 3 Days Qty: 18 0RF Problem Reconciliation Problems Reviewed?: Yes Patient Discharge Instructions Additional Instructions: Your surgery has been scheduled for approximately 8:30 AM tomorrow to 09/01/2024. Please do not eat anything after midnight. Patient Instructions: DI for Groin Hernia Print Language: Mongolian Providers Primary Care Provider: Provider,Referral Admit Provider: Woody Dumas Attending Provider: Woody Dumas
--- NOTE | 2024-09-02 11:37 | SW/DCPLANNER ---
Spoke with patients father on the phone. Patients father stated that his son is doing pretty well just sore. Patients father stated that they were able to get his medicine picked up from clinic pharmacy. Patient stated that they have no concerns or questions at this time. Jeremiah Espinoza
== END 2024-08-31 15:28 | disposition home or self-care (01) | DRG 394 ==
LOC: ER 20:51 → 2ND 21:18
PROVIDERS: Nurse Practitioner Family; Admitting Provider Student in an Organized Health Care Education/Training Program; Emergency Provider Emergency Medicine; Visit Provider Student in an Organized Health Care Education/Training Program
DX: K40.30 Unilateral inguinal hernia, with obstruction, without gangrene, not specified as recurrent (principal); E87.21 Acute metabolic acidosis; F17.210 Nicotine dependence, cigarettes, uncomplicated; F11.91 Opioid use, unspecified, in remission; R74.01 Elevation of levels of liver transaminase levels; X50.0XXA Overexertion from strenuous movement or load, initial encounter; Z86.19 Personal history of other infectious and parasitic diseases; Z59.71 Insufficient health insurance coverage; Z59.82 Transportation insecurity
CPT/HCPCS: 74177; 80053; 81001; 83605; 85025; 85610; 86803; 87389; 87522; 93005; 99285; G0378; J1171; J1650; J1885; J2405; J7030; Q9967

== ENCOUNTER 2024-09-01 06:50 | Day surgery (SDC) | payer SELFPAY ==
[2024-09-01] VITALS (15 sets, daily range): BP systolic 106–191; BP diastolic 84–128; PULSE 57–74; RESP 14–19; TEMP 36.1–36.9; O2SAT 98–100; BMI 22.3
[2024-09-01] MEDS: LACTATED RINGERS 1000ML 1,000 ML 25 ML IV (07:33)
--- NOTE | 2024-09-01 08:01 | P.PNANES_ITS ---
[facility] Disclaimer: The information contained in this section may have been updated after the patient was seen, as this information can be updated by other users. 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 current occupational exposures/hazards: Yes caffeine: Yes Have you lived/traveled outside [place] in past 30 days?: No Contact w/someone who lives/traveled outside US past 30 days?: No Exposure to someone with infectious disease in past 14 days?: No Do you have a fever (greater than 100.4 F or 38 C)?: No Have you tested positive for COVID-19: No Exposed to someone with COVID-19 in past 14 days?: No Do you have a sore throat?: No Do you have a cough?: No Do you have any weakness?: No Are you experiencing any nausea/vomitting?: No Do you have any diarrhea?: No Are you experiencing any unusual bleeding?: No Do you have any muscle aches/pain?: No Do you have any abdominal pain?: No Are you experiencing loss of taste or smell?: No [facility] Anesthesia Checklist Patient Identification Patient Identification: Arm Band Structural Data Admitted From: Home Planned Operative Procedure/s: Open Right Inguinal Hernia Repair Consent for Planned Operative Procedure(s) Verified: Yes Verified Documents: Surgical Consent and History and Physical NPO Status Verified Time NPO: 00:00 Additional verifications Anesthesia Reactions: No Hx Blood Transfusions: No Blood Transfusion Reaction: No Airway Assessment Mallampati Score:: Class II C-Spine Mobility Assessed: Yes TMJ Mobility Assessed: Yes Dentition: Edentulous Neurological Assessment Level of Consciousness: Awake, Alert and Appropriate Anesthesia Plan Anesthesia Risk discussed: Yes Anesthesia Plan: Verified ASA Class: II Anesthesia Type: General
[2024-09-01] MEDS: CEFAZOLIN SODIUM 2 GM in 0.9 % SODIUM CHLORIDE 100 ML IV (10:58)
--- NOTE | 2024-09-01 11:01 | SUR.PREOP ---
Family updated on POC at this time.
[2024-09-01] MEDS: LIDOCAINE 1% 20ML MDV 20 ML (11:30)
--- NOTE | 2024-09-01 12:49 | EXP.OP.NOTE ---
Date of procedure: 09/01/24 Pre-op Diagnosis:: Right inguinal hernia Post-op Diagnosis:: Same Procedure performed:: Open right inguinal hernia repair Surgeon:: Cliff Horta MD Anesthesia: GETKala Estimated blood loss (mL): 15 Operative findings:: Complex indirect defect Severe soft tissue stranding throughout inguinal canal Operative note:: After informed consent was obtained the patient was taken to the operating room and placed in the supine position. General anesthesia was induced and his lower abdomen and groin/scrotum were prepped and draped in a sterile fashion. After infiltration with local anesthetic an oblique right groin incision was made. Electrocautery was utilized to transect through Tova's fascia to the level of the external aponeurosis. The external aponeurosis was sharply opened to the level of the external ring. The contents of the canal were carefully elevated. Severe soft tissue thickening noted throughout. Dense adhesions were carefully taken down with a combination of electrocautery and blunt dissection. No obvious injury to the vas deferens or vasculature was noted. Adhesions to the hernia sac were exceptionally dense and a combination of blunt dissection and electrocautery was utilized. To facilitate the dissection the distal portion of the hernia sac was sharply opened with Metzenbaum scissors. This opening was ultimately reapproximated with running Vicryl suture. The hernia sac was inverted and an extra-large PerFix plug was secured in position with interrupted Ethibond. The PerFix overlay was then secured to the shelving edge inferiorly and fascial margin superiorly with interrupted Ethibond. The external aponeurosis was reapproximated with running Vicryl suture. Tova's fascia was closed in the same manner. Skin was then reapproximated utilizing the INSORB stapling device. Dressings were applied and the patient was transferred to recovery in stable condition. Condition: stable Disposition: PACU Specimens:: None Complications:: No immediate
--- NOTE | 2024-09-01 12:55 | PC.NURSE ---
Chuy Cao, SCREENING TECH at bedside, aware of pt bp, administering medication
[2024-09-01] MEDS: HYDROMORPHONE 2MG/ML SYRINGE 0.5 MG IV ×4 (13:15→13:40)
--- NOTE | 2024-09-01 13:29 | P.PNANES_ITS ---
[facility] Anesthesia Record Part I Anesthesia Record I Intake, IV Amount: 300 Hydration: Adequate Estimated blood loss (mL): 10 Urine output (mL): 0 Blood Products used (#): none Blood Pressure: 176/120 SaO2: 99 Pulse Rate: 74 Airway Patency: Patent Respiratory Rate: 14 Temperature: 97 F Patient is:: Drowsy and Unstable Stable to PACU at:: 12:55 Comments:: Continues to experience pain after prn med. Blood pressure treated with Labetelol. Blood pressure at 1355 150/96.
[2024-09-01] MEDS: KETOROLAC 30MG/ML VIAL 30 MG IV (13:43)
[2024-09-01] MEDS: MEPERIDINE 25MG/ML 1ML SYRINGE 25 MG IV (14:04)
[2024-09-01] MEDS: HYDRALAZINE 20MG/ML VIAL 5 MG IV (14:09)
[2024-09-01 14:17] LABS: Microscopic,Cath URINE MICROSCOPIC (MICROSCOPIC)
[2024-09-01 14:22] LABS: Appearance,Urine/Cath CLEAR (Clear); Bilirubin,Cath Negative (Negative); Blood, Urine/Cath Negative (Negative); Color,Urine/Cath YELLOW (Yellow); Glucose,Urine/Cath (UA) Negative (Negative); Ketones,Urine/Cath Negative (Negative); Leukocyte Esterase,Cath Negative (Negative); Nitrate,Cath Negative (Negative); Protein,Urine/Cath Negative (Negative); Specific Gravity, Urine/Cath 1.015 (1.005-1.030)
[2024-09-01] MEDS: HYDROCODONE/APAP 5/325 MG TABLET 2 TAB PO (14:53)
[2024-09-01 16:24] LABS: Squamous Epithelial Ur./Cath Occasional #/hpf (0-5); WBC,Urine/Cath Occasional #/hpf (0-3)
--- NOTE | 2024-09-02 12:40 | P.PNANES_ITS ---
[facility] Anesthesia Record Part II Anesthesia Record Part II Discharge Time: 14:35 Destination: Surgical Day Care (OP Surgery) PACU nurse assessment reviewed?: Yes Patient Condition:: Good Anesthesia Complications:: None Swallowing reflex intact?: Yes Airway Patency: Patent Cyanosis?: No Blood Pressure: 148/95 SaO2: 99 Respiratory Rate: 16 Pulse Rate: 59 Temperature: 97.8 F Mental Status: Alert & Oriented Pain level:: 7 Nausea and/or vomitting:: None Intake, IV Amount: 0 Hydration: Adequate
[2024-09-02 12:41] VITALS: BP 148/95; PULSE 59; RESP 16; TEMP 36.6; O2SAT 99
== END 2024-09-01 15:10 | disposition home or self-care (01) ==
PROVIDERS: Visit Provider Surgery
PROC: (CPT 49505; principal; 2024-09-01 08:30)
DX: K40.90 Unilateral inguinal hernia, without obstruction or gangrene, not specified as recurrent (principal)
CPT/HCPCS: 49505; 81001; 96374; J3490; J0360; J0690; J1100; J1171; J1885; J2175; J2250; J2405; J3010; J7120

== ENCOUNTER 2024-09-18 16:55 | Emergency (ER) | payer OTHER, SELFPAY ==
[2024-09-18 17:11] VITALS: BP 142/81; PULSE 97; RESP 18; TEMP 36.8; O2SAT 99; BMI 20.9
--- NOTE | 2024-09-18 18:05 | XR_ITS ---
PROCEDURE INFORMATION: Exam: XR Right Foot Exam date and time: 09/18/2024 6:07 PM Age: 44 years old Clinical indication: Pain; Foot; Right; Additional info: Swelling, erythema TECHNIQUE: Imaging protocol: Radiologic exam of the right foot. Views: 1 or 2 views. COMPARISON: CR XR FOOT RT 2V 09/18/2024 6:07 PM FINDINGS: Bones/joints: No acute fracture or malalignment. Soft tissues: Circumferential ankle soft tissue swelling. IMPRESSION: Circumferential ankle soft tissue swelling. No acute osseous findings.
--- NOTE | 2024-09-18 18:05 | XR_ITS ---
PROCEDURE INFORMATION: Exam: XR Right Tibia and Fibula Exam date and time: 09/18/2024 6:09 PM Age: 44 years old Clinical indication: Pain; Ankle; Right; Additional info: Swelling, erythema TECHNIQUE: Imaging protocol: Radiologic exam of the right tibia and fibula. Views: 2 views. COMPARISON: CR XR FOOT RT 2V 09/18/2024 6:07 PM FINDINGS: Bones/joints: No acute fracture or malalignment. Soft tissues: Circumferential ankle soft tissue swelling. IMPRESSION: Circumferential ankle soft tissue swelling. No acute osseous findings.
--- NOTE | 2024-09-18 18:05 | XR_ITS ---
PROCEDURE INFORMATION: Exam: XR Right Ankle Exam date and time: 09/18/2024 6:09 PM Age: 44 years old Clinical indication: Pain; Ankle; Right; Additional info: Swelling, erythema TECHNIQUE: Imaging protocol: Radiologic exam of the right ankle. Views: 1 or 2 views. COMPARISON: CR XR ANKLE RT MIN 3V 03/27/2023 11:40 PM FINDINGS: Bones/joints: No acute fracture or malalignment. Soft tissues: Circumferential ankle soft tissue swelling. IMPRESSION: Circumferential ankle soft tissue swelling. No acute osseous findings.
[2024-09-18] MEDS: ONDANSETRON 4MG/2ML VIAL 4 MG IV (18:44)
[2024-09-18] MEDS: MORPHINE 4MG/ML SYRINGE 4 MG IV (18:44)
[2024-09-18 18:53] LABS: Basophils % 0.5 % (0.1-2.0); Eosinophils # 0.2 K/mm3 (0.0-0.4); Eosinophils % 2.8 % (0.1-12.0); Hemoglobin 11.9 g/dL (14.1-18.0); Mean Corpuscular Hemoglobin 30.4 pg (27.0-31.2); Mean Corpuscular Volume 89.5 fl (80-94); Mean Platelet Volume 9.6 fl (7.4-10.4); Monocytes # 0.7 K/mm3 (0.1-1.0); Monocytes % 8.8 % (1.7-9.3); Neutrophils # 6.2 K/mm3 (1.8-7.8); Neutrophils % 75.7 % (37.0-80.0); Platelet Count 161 K/mm3 (142-424); Red Blood Count 3.91 M/mm3 (4.60-6.20); Red Cell Distribution Width 13.8 % (11.5-17.5); White Blood Count 8.2 K/mm3 (4.8-10.8)
--- NOTE | 2024-09-18 19:05 | HMH.EDGENADL ---
Discharge Plan Disposition Patient Disposition: Xfer Other Condition: Fair Prescriptions Prescriptions: No Action hydrocodone-acetaminophen 5-325 mg tablet 1 tab PO Q4HP PRN (Reason: Moderate Pain (Scale Score 5-6)) Patient Comments: TAKE ONE TABLET BY MOUTH EVERY 4 HOURS NEEDED FOR mild TO moderate pain FOR 3 DAYS MAY CAUSE DROWSINESS Referrals Follow up/Referrals: Provider,Referral, MD [Primary Care Provider] - See instructions Activity Restrictions/Add. Instructions Additional Instructions/Restrictions: Please go directly to [facility] for further evaluation with orthopedic surgery. Clinical Impressions Clinical Impression: Cellulitis Qualifiers: Site of cellulitis: extremity Site of cellulitis of extremity: lower extremity Laterality: right Qualified Code(s): L03.115 - Cellulitis of right lower limb Stand Alone Forms Stand Alone Forms: Transfer Record - ED Print Language Print Language: Vietnamese Discharge ED Provider: Stefanie Eli General Adult HPI General Chief complaint: PAIN Stated complaint: Right foot red, swollen up to knee Time Seen by Provider: 09/18/24 17:51 Mode of Arrival: Ambulatory Source of Information: Patient Limitations: No Limitations Description of Symptoms (Recalled from ER Triage Doc. by RN): Pt presents for evaluation of right foot swelling and pain that started 2 days ago. Pt states pain became worse today. History of Present Illness HPI narrative: Willem Simpson is a 44-year-old male presenting with right leg swelling and redness. Patient is a former IV drug user. Patient denies current use. Patient believes his symptoms started 2 days ago. Patient does not feel he has had a fever. Patient complaining of significant pain, swelling, redness to the foot and ankle. Patient admits to history of septic joint on the same ankle. Patient denies trauma to the foot or ankle. Related Data Home Medications ?Medication ?Instructions ?Recorded ?Confirmed hydrocodone 5 mg-acetaminophen 325 1 tab PO Q4HP PRN Moderate Pain 09/18/24 09/18/24 mg tablet (Scale Score 5-6) Allergies Allergy/AdvReac Type Severity Reaction Status Date / Time No Known Allergies Allergy Verified 09/09/24 09:16 [facility] Disclaimer: The information contained in this section may have been updated after the patient was seen, as this information can be updated by other users. Medical History No significant past medical history Transaminitis Lactic acidosis Abrasion, corneal Cellulitis Septic arthritis of ankle Exposure to COVID-19 virus Strep throat Hx of hepatitis C Rib pain Contusion of ribs Cellulitis and abscess of buttock Family History Other No significant family history Social History Smoking Status: Current every day smoker tobacco type: cigarettes packs per day: 1 second hand exposure: No alcohol intake: never substance use type: former substance user and heroin current occupational status: unemployed and other Travel in the last 8 weeks: None household members: family housing: house 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 current occupational exposures/hazards: Yes caffeine: Yes Have you lived/traveled outside US in past 30 days?: No Contact w/someone who lives/traveled outside US past 30 days?: No Exposure to someone with infectious disease in past 14 days?: No Do you have a fever (greater than 100.4 F or 38 C)?: No Have you tested positive for COVID-19: No Exposed to someone with COVID-19 in past 14 days?: No Do you have a sore throat?: No Do you have a cough?: No Do you have any weakness?: No Do you have any diarrhea?: No Are you experiencing any unusual bleeding?: No Do you have any muscle aches/pain?: No Do you have any abdominal pain?: No Are you experiencing loss of taste or smell?: No Other Medical History Have you received the Flu Vaccine for this season: No Have you received the Pneumonia Vaccine: No ROS Obtained: Yes All systems reviewed & no additional complaints except as documented Physical Exam General General appearance: alert and in distress Head Head exam: atraumatic Eye Eye exam: Present EOMI; Absent scleral icterus Neck Neck exam: Present full ROM Chest Chest inspection: Present normal inspection Respiratory Respiratory exam: Present normal lung sounds bilaterally Cardiovascular Cardiovascular exam: Present regular rate and normal rhythm Abdominal Exam Abdominal exam: Present soft; Absent distention or tenderness exam: Present deferred Extremities Exam Extremities exam: Present tenderness, edema, joint swelling and other (Erythema, swelling, warmth, significant tenderness to right foot, ankle to mid rodriguez level. No open wounds noted. Sensation intact.) Back Exam Back exam: Present full ROM Neurological Exam Neurological exam: Present alert and oriented X3 Psychiatric Psychiatric exam: Present normal mood Skin Skin exam: Present warm and dry Medical Decision Making Medical Records Medical records reviewed: Yes I reviewed the patient's medical records. Screening: Per USPSTF and CDC recommendations, given the prevalence of disease in our region, it is our hospital?s policy to screen for HIV and viral Hepatitis for all patients aged 18 and over and those with ongoing risk factors. Andrew Inquiry Pt receiving controlled substance: No Vital Signs: 09/18/24 17:11 Temperature 98.3 F Temperature Source Oral Pulse Rate [Right] 97 H Respiratory Rate 18 Blood Pressure [Right Arm] 142/81 H Blood Pressure Mean [Right Arm] 101 Blood Pressure Source [Right Arm] Automatic Cuff Blood Pressure Position [Right Arm] Sitting 02 Sat by Pulse Oximetry 99 Oxygen Delivery Method Room Air Lab Data Lab Results 09/18/24 18:40: WBC 8.2, RBC 3.91 L, Hgb 11.9 L, Hct 35.0 L, MCV 89.5, MCH 30.4, MCHC 34.0, RDW 13.8, Plt Count 161, MPV 9.6, Neut % (Auto) 75.7, Lymph % (Auto) 12.0, [place] % (Auto) 8.8, Eos % (Auto) 2.8, Baso % (Auto) 0.5, Neut # (Auto) 6.2, Lymph # (Auto) 1.0, [place] # (Auto) 0.7, Eos # (Auto) 0.2, Baso # (Auto) 0.0, ESR 28 H, Sodium 133 L, Potassium 3.7, Chloride 98, Carbon Dioxide 31 H, Anion Gap 7.7, BUN 11, Creatinine 0.90, Estimated Creat Clear 101, Estimated GFR 91, Est GFR ( Amer) 110, Glucose 94, Calcium 8.8, Total Bilirubin 1.1, AST 73 H, ALT 63, Alkaline Phosphatase 116, C-Reactive Protein 16.7 H, Total Protein 7.1, Albumin 3.8, Globulin 3.3 H, Albumin/Globulin Ratio 1.2 09/18/24 20:00: Lactate 1.0 09/18/24 18:40 09/18/24 18:40 Orders (Tests/Meds): ED MEDICATIONS Discontinued Medications Generic Name Dose Route Start Last Admin Trade Name Freq PRN Reason Stop Dose Admin Hydromorphone HCl 1 mg 09/18/24 20:16 09/18/24 20:24 Hydromorphone 2mg/Ml Syringe IV 09/18/24 20:17 1 mg ONCE ONE Administration Morphine Sulfate 4 mg 09/18/24 18:08 09/18/24 18:44 Morphine 4mg/Ml Syringe IV 09/18/24 18:09 4 mg ONCE ONE Administration Ondansetron HCl 4 mg 09/18/24 18:08 09/18/24 18:44 Ondansetron 4mg/2ml Vial IV 09/18/24 18:09 4 mg ONCE ONE Administration ORDERS Category Date Time Status Ankle XR - Right 2 Views [XR ankle RT 2V] Stat Exams 09/18/24 18:05 Completed Fibula/tibia XR right 2 views [XR tibia fibula RT 2V] Exams 09/18/24 18:05 Completed Stat Foot XR right 2 views [XR foot RT 2V] Stat Exams 09/18/24 18:05 Completed CBC w/Auto Diff [Complete Blood Count Auto Diff] Stat Lab 09/18/24 18:40 Completed CMP [Comprehensive Metabolic Panel] Stat Lab 09/18/24 18:40 Completed CRP [C-Reactive Protein] Stat Lab 09/18/24 18:40 Completed ESR [Erythrocyte Sedimentation Rate] Stat Lab 09/18/24 18:40 Completed Lactic Acid Stat Lab 09/18/24 20:00 Completed Blood Culture Stat Micro 09/18/24 20:00 ORD Medical Decision Narrative: In summary, this is a 44-year-old male presenting with red, swollen, painful right foot and ankle. Differential diagnosis includes but is not limited to, septic joint, cellulitis, osteomyelitis, foreign body, fracture/dislocation, sepsis, among others. Given patient's history of IV drug use, he is high risk for recurrent septic joint. Will treat symptoms with morphine and Zofran. Will evaluate with CBC, CRP, ESR, blood cultures, XR, blood cultures. Labs significant for no leukocytosis. ESR and CRP elevated. Slight hyponatremia at 133. XR right lower extremity personally reviewed by me and negative for fracture or malalignment, no bony erosion noted, circumferential swelling noted about the ankle. Given patient's IV drug use history and prior septic joint in the right ankle, I discussed patient transfer with orthopedic surgeon at [facility]. He was in agreement with plan to bring patient to [facility] medicine for evaluation tomorrow. Requested patient to be n.p.o. at midnight for possible OR time tomorrow. [facility]. Will transfer patient via BLS. Patient was in agreement with this plan. Blood cultures pending at time of transfer. Stefanie Eli MD Critical Care Critical Care Time Critical Care Time: No
[2024-09-18 19:10] LABS: Albumin Level 3.8 g/dl (3.5-5.0); Chloride 98 mmol/L (98-107); Sodium 133 mmol/L (136-145)
[2024-09-18 19:11] LABS: Potassium 3.7 mmoL/L (3.5-5.1)
[2024-09-18 19:13] LABS: Alanine Aminotransferase 63 U/L (12-78); Anion Gap 7.7 mEq/L (5-15); Aspartate Amino Transferase 73 U/L (17-59); Bilirubin,Total 1.1 mg/dl (0.2-1.3); Blood Urea Nitrogen 11 mg/dl (9-20); Carbon Dioxide 31 mmol/L (22.0-30.0); Creatinine Clearance Estimated 101 mL/min (50-200); Estimated Glomerular Filt Rate 91 ml/min (>60); GFR (African American) 110 ML/MIN (>60)
[2024-09-18 19:14] LABS: Albumin/Globulin Ratio 1.2 (1.1-1.8); Alkaline Phosphatase 116 U/L (38-126); Calcium 8.8 mg/dl (8.4-10.2); Globulin 3.3 g/dL (1.3-3.2); Glucose 94 mg/dl (74-100); Total Protein,Serum 7.1 g/dl (6.3-8.2)
[2024-09-18 19:25] LABS: C-Reactive Protein 16.7 mg/L (0-4)
[2024-09-18 19:37] LABS: Erythrocyte Sedimentation Rate 28 mm/hr (0-15)
[2024-09-18] MEDS: HYDROMORPHONE 2MG/ML SYRINGE 1 MG IV (20:24)
--- NOTE | 2024-09-18 21:35 | PC.NURSE ---
Pt transferred to [facility] by POV. Skin pink warm and dry Resp full and easy Speech clear and appropriate. Right ankle red and swollen + pedal pulses at time of transfer
[2024-09-18 21:46] VITALS: BP 140/70; PULSE 98; RESP 24; TEMP 36.9; O2SAT 97
== END 2024-09-18 21:46 | disposition other institution (70) ==
PROVIDERS: Emergency Provider Student in an Organized Health Care Education/Training Program
DX: L03.115 Cellulitis of right lower limb (principal); M79.671 Pain in right foot; R22.41 Localized swelling, mass and lump, right lower limb
CPT/HCPCS: 73590; 73600; 73620; 80053; 83605; 85025; 85651; 86140; 87040; 96374; 96375; 99283; J1171; J2270; J2405

== ENCOUNTER 2024-12-27 11:05 | Outpatient (CLI) | payer OTHER, SELFPAY ==
[2024-12-27 11:41] LABS: Basophils % 0.3 % (0.1-2.0); Eosinophils # 0.1 Kmm3 (0.0-0.4); Eosinophils % 2.5 % (0.1-12.0); Hematocrit 34.3 % (42.0-52.0); Immature Granulocytes # 0.01 10^3uL; Immature Granulocytes % 0.3 %; Lymphocytes # 0.9 K/mm3 (0.7-4.5); Lymphocytes % 24.9 % (10-50); Mean Corpuscular Hemoglobin 30.5 pg (27.0-31.2); Mean Corpuscular Volume 87.1 fl (80-94); Mean Platelet Volume 10.4 fl (7.4-10.4); Monocytes # 0.2 K/mm3 (0.1-1.0); Monocytes % 6.7 % (1.7-9.3); Neutrophils # 2.3 K/mm3 (1.8-7.8); Neutrophils % 65.3 % (37.0-80.0); Nucleated Red Blood Cells # 0 10^3/uL; Nucleated Red Blood Cells % 0 %; Platelet Count 120 K/mm3 (142-424); Red Blood Count 3.94 M/mm3 (4.60-6.20); Red Cell Distribution Width 13.7 % (11.5-17.5); Red Cell Distribution Width-SD 43.8 fL; White Blood Count 3.6 K/mm3 (4.8-10.8)
[2024-12-27 11:52] LABS: INR 1.09 (0.9-1.1)
[2024-12-27 12:15] LABS: Albumin Level 3.5 g/dl (3.5-5.0); Chloride 109 mmol/L (98-107); Sodium 140 mmol/L (136-145)
[2024-12-27 12:16] LABS: Potassium 3.5 mmoL/L (3.5-5.1)
[2024-12-27 12:18] LABS: Alanine Aminotransferase 101 U/L (12-78); Anion Gap 9.5 mEq/L (5-15); Aspartate Amino Transferase 99 U/L (17-59); Blood Urea Nitrogen 11 mg/dl (9-20); Carbon Dioxide 25 mmol/L (22.0-30.0); Estimated Glomerular Filt Rate 145 ml/min (>60); GFR (African American) 176 ML/MIN (>60)
[2024-12-27 12:19] LABS: Albumin/Globulin Ratio 1.2 (1.1-1.8); Alkaline Phosphatase 142 U/L (38-126); Bilirubin,Total 0.4 mg/dl (0.2-1.3); Calcium 8.8 mg/dl (8.4-10.2); Globulin 2.9 g/dL (1.3-3.2); Glucose 142 mg/dl (74-100); Total Protein,Serum 6.4 g/dl (6.3-8.2)
[2024-12-28 09:58] LABS: Hep A Ab, IgM Negative (Negative); Hep A Ab, Total Positive (Negative); Hep B Core Ab, Total Positive (Negative); Hep B Surface Ab, Qual Non Reactive (.)
[2024-12-28 10:13] LABS: HBsAg Confirmation Positive (.); Hepatitis B Surface Antigen Confirm. indicated (Negative)
[2024-12-29 23:14] LABS: Hepatitis C Genotype 1a (.)
[2024-12-30 05:09] LABS: ALT (SGPT) P5P 93 IU/L (0-55); Alpha 2-Macroglobulins, Qn 206 mg/dL (110-276); Apolipoprotein A-1 122 mg/dL (101-178); Bilirubin, Total 0.4 mg/dL (0.0-1.2); Fibrosis Score 0.46 (0.00-0.21); Fibrosis Stage F1-F2 (.); GGT 75 IU/L (0-65); Haptoglobin 46 mg/dL (23-355); Necroinflammat Activity Grade A2-Moderate activity (.)
== END 2024-12-27 23:59 | disposition home or self-care (01) ==
LOC: LAB 11:06
PROVIDERS: Visit Provider Nurse Practitioner Family
DX: B18.2 Chronic viral hepatitis C (principal)
CPT/HCPCS: 36415; 80053; 81517; 82172; 82247; 82977; 83010; 83883; 84460; 85025; 85610; 86704; 86706; 86708; 87340; 87902

== ENCOUNTER 2025-02-07 11:46 | Outpatient (CLI) | payer OTHER, SELFPAY ==
[2025-02-07 12:17] LABS: INR 1.08 (0.9-1.1); Prothrombin Time 11.9 seconds (10.1-12.5)
[2025-02-07 12:26] LABS: Albumin Level 3.3 g/dl (3.5-5.0); Chloride 99 mmol/L (98-107); Potassium 3.9 mmoL/L (3.5-5.1); Sodium 133 mmol/L (136-145)
[2025-02-07 12:29] LABS: Alanine Aminotransferase 63 U/L (12-78); Albumin/Globulin Ratio 1.0 (1.1-1.8); Alkaline Phosphatase 104 U/L (38-126); Anion Gap 4.9 mEq/L (5-15); Aspartate Amino Transferase 101 U/L (17-59); Bilirubin,Total 1.0 mg/dl (0.2-1.3); Blood Urea Nitrogen 10 mg/dl (9-20); Calcium 8.9 mg/dl (8.4-10.2); Carbon Dioxide 33 mmol/L (22.0-30.0); Creatinine,Serum 0.60 mg/dl (0.66-1.25); Estimated Glomerular Filt Rate 145 ml/min (>60); GFR (African American) 176 ML/MIN (>60); Globulin 3.2 g/dL (1.3-3.2); Glucose 101 mg/dl (74-100); Total Protein,Serum 6.5 g/dl (6.3-8.2)
[2025-02-08 05:21] LABS: Hepatitis B Core Antibody, IgM Negative (Negative)
[2025-02-08 07:11] LABS: Hepatitis B Surface Antigen Confirm. indicated (Negative)
== END 2025-02-07 23:59 | disposition home or self-care (01) ==
LOC: LAB 11:47
PROVIDERS: Visit Provider Nurse Practitioner Family
DX: B19.10 Unspecified viral hepatitis B without hepatic coma (principal)
CPT/HCPCS: 36415; 80053; 85610; 86705; 86707; 87340; 87350; 87517